=== PATIENT | female | born 1935 | race American Indian/Alaskan Native ===

== ENCOUNTER 2016-12-28 17:33 | Inpatient (IN) | payer MEDICARE, MEDICAID ==
[2016-12-28 17:50] VITALS: BMI 25.6
--- NOTE | 2016-12-28 17:56 | ED PDOC ---
Arrival/HPI - General Time Seen by Provider: 12/28/16 17:34 - History of Present Illness Narrative History of Present Illness (Text): 12/28/16 17:53 Patient is an 81 y/o F with hx of HTN, Hyperlipidemia, hypothyroid, and DM, presenting with request to be placed in a residential. Patient reports that she does not feel safe living alone and is frequently falling. She reports that she previously lived in [place]. She reports that she was scheduled to get a R knee replacement but got into an argument with her sister so she came back to [place]. She reports that she has persistent R knee pain and is frequently falling. She reports that she does not feel safe at home and wants to be placed in a residential. She also reports that she gets her defibrillator checked every 6 months and hasn't had it checked in >8 months so would like it interogated. Denies chest pain, shortness of breath, defribrillator firing, abdominal pain, fever, nausea/vomiting. 12/28/16 17:53 Family/Social History Family/Social History: No Known Family HX Allergies/Home Meds Allergies/Adverse Reactions: Allergies No Known Allergies Allergy (Verified 12/28/16 17:51) Home Medications: Home Meds Medication Instructions Recorded Confirmed Amiodarone [Cordarone] 200 mg PO DAILY 12/28/16 12/28/16 Carvedilol [Coreg] 25 mg PO BID 12/28/16 12/28/16 Digoxin [Digoxin] 125 mcg PO HS 12/28/16 12/28/16 Gabapentin [Neurontin] 300 mg PO HS 12/28/16 12/28/16 Glyburide/Metformin HCl 1 tab PO BID 12/28/16 12/28/16 [Glyburide-Metformin 2.5-500 mg] Isosorbide Mononitrate [Isosorbide 60 mg PO DAILY 12/28/16 12/28/16 Mononitrate ER] Levothyroxine [Synthroid] 50 mcg PO DAILY 12/28/16 12/28/16 Ondansetron [Zofran Tab] 1 tab PO Q8 PRN 12/28/16 12/28/16 Simvastatin [Simvastatin] 40 mg PO DAILY 12/28/16 12/28/16 hydrALAZINE [Apresoline] 1.5 tab PO TID 12/28/16 12/28/16 Review of Systems - Review of Systems Constitutional: absent: Fatigue, Weight Change, Fevers, Night Sweats Eyes: absent: Vision Changes ENT: absent: Hearing Changes Respiratory: absent: SOB, Cough, Sputum, Wheezing Cardiovascular: absent: Chest Pain, Palpitations, Edema, Calf Pain, ALFREDO, Orthopnea, Syncope Gastrointestinal: absent: Abdominal Pain, Constipation, Diarrhea, Nausea, Vomiting Genitourinary Female: absent: Dysuria, Frequency Musculoskeletal: Arthralgias Skin: absent: Rash Neurological: Gait Changes (frequent falls). absent: Headache, Dizziness, Focal Weakness, Speech Changes, Facial Droop Endocrine: absent: Diaphoresis Hemo/Lymphatic: absent: Adenopathy Psychiatric: absent: Anxiety Physical Exam Vital Signs Temp Pulse Resp BP Pulse Ox 12/28/16 18:04 98 F 80 22 171/77 H 99 Temperature: Afebrile Blood Pressure: Normal Pulse: Regular Respiratory Rate: Normal Appearance: Positive for: Well-Appearing, Non-Toxic, Comfortable Pain Distress: None Mental Status: Positive for: Alert and Oriented X 3 - Systems Exam Head: Present: Atraumatic, Normocephalic Pupils: Present: Other (blind in R eye, reactive L eye. +Exophthalmos) Extroacular Muscles: Present: EOMI Mouth: Present: Moist Mucous Membranes Neck: Present: Normal Range of Motion Respiratory/Chest: Present: Clear to Auscultation, Good Air Exchange. No: Respiratory Distress, Accessory Muscle Use Cardiovascular: Present: Regular Rate and Rhythm, Normal S1, S2. No: Murmurs Abdomen: No: Tenderness, Distention Back: Present: Normal Inspection. No: CVA Tenderness Upper Extremity: Present: Normal Inspection Lower Extremity: Present: NORMAL PULSES, Other (distal pulses intact). No: Normal ROM (decreased ROM at R knee) Neurological: Present: GCS=15, CN II-XII Intact, Speech Normal Skin: Present: Warm, Dry, Normal Color. No: Rashes Psychiatric: Present: Alert, Oriented x 3, Normal Insight, Normal Concentration. No: Suicidal Ideation, Homicidal Ideation Medical Decision Making ED Course and Treatment: 12/28/16 17:59 Patient is an 81 y/o F who was scheduled for outpatient knee replacement, presenting with worsening R knee pain, frequent falls and feels unsafe at home. She is requesting residential placement. Will get labs, including digoxin level and thyroid studies, cxray, ct head and r knee xray to r/o fracture or additional injury and will admit to hospital for frequent fall for residential placement. Cardiology can interrogate defibrillator as inpatient if desired and deemed necessary. 12/28/16 18:02 EKG shows NSR at 84bpm with 1st degree AV block. Normal intervals and no acute ST changes. No current chest pain 12/28/16 19:00 Will sign out to Dr. Valerio to follow-up imaging and labs and admit to medicine for frequent falls/unsafe discharge requiring PT/OT eval and likely nurisng home placement. - RAD Interpretation Radiology Orders: 12/28/16 17:52 KNEE RIGHT 2 VIEWS (AP & LAT) [RAD] Stat 12/28/16 17:56 HEAD W/O CONTRAST [CT] Stat 12/28/16 18:00 CHEST TWO VIEWS (PA/LAT) [RAD] Stat Disposition/Present on Arrival - Present on Arrival Any Indicators Present on Arrival: No - Disposition Have Diagnosis and Disposition been Completed?: Yes Diagnosis: Frequent falls, Knee pain Disposition: HOSPITALIZED Disposition Time: 18:00 Patient Plan: Admission Patient Problems: Current Active Problems Problem Status Diagnosed Frequent falls Acute Knee pain Acute Condition: FAIR
[2016-12-28 18:17] LABS: ADD MANUAL DIFF? NO
[2016-12-28 18:39] LABS: ALB/GLOB RATIO 0.9 (1.1-1.8); BILIRUBIN,TOTAL 0.4 mg/dL (0.2-1.3); CALCIUM 8.9 mg/dL (8.4-10.5); MAGNESIUM 2.1 mg/dL (1.7-2.2); PHOSPHOROUS 4.5 mg/dL (2.5-4.5); POTASSIUM 4.5 mmol/L (3.6-5.0); TOTAL PROTEIN 7.7 g/dL (5.8-8.3)
[2016-12-28 18:40] LABS: BASO # 0.01 K/mm3 (0.0-2.0); BASO % 0.1 % (0.0-3.0); EOS # 0.1 (0.0-0.7); EOS % 1.8 % (1.5-5.0); GRAN # 6.17 (1.4-6.5); GRAN % 77.6 % (50.0-68.0); HEMATOCRIT 32.9 % (36.0-48.0); LYMPH # 1.1 (1.2-3.4); LYMPH % 13.6 % (22.0-35.0); MEAN CELL VOLUME 93.5 fL (80.0-105.0); MEAN PLATELET VOLUME 8.7 fl (7.0-11.0); MONO # 0.6 (0.1-0.6); MONO % 6.9 % (1.0-6.0); PLATELET COUNT 381 10^3/uL (120.0-450.0); RED CELL DISTRIBUTION WIDTH 16.2 % (11.5-14.5)
[2016-12-28 18:53] LABS: FREE T4 1.67 ng/dL (0.78-2.19)
[2016-12-28 18:58] LABS: URINE BILIRUBIN NEGATIVE (NEGATIVE); URINE BLOOD NEGATIVE (NEGATIVE); URINE GLUCOSE (UA) NEGATIVE (NEGATIVE); URINE KETONE NEGATIVE (NEGATIVE); URINE LEUKOCYTE ESTERASE NEGATIVE Leu/uL (NEGATIVE); URINE PROTEIN 100 mg/dL (<30 mg/dL); URINE UROBILINOGEN 0.2 E.U./dL (<1 E.U./dL)
[2016-12-28 18:59] LABS: URINE APPEARANCE CLEAR (CLEAR); URINE COLOR YELLOW (YELLOW)
[2016-12-28 19:00] LABS: URINE RBC NEGATIVE /hpf (0-2); URINE WBC 0 - 2 /hpf (0-6)
[2016-12-28 19:07] LABS: THYROID STIMULATING HORMONE 1.51 mIU/mL (0.46-4.68)
--- NOTE | 2016-12-28 19:24 | CT ---
EXAM: CT Head Without Intravenous Contrast CLINICAL HISTORY: 81 years old, female; Signs and symptoms; Other: Frequent falls; Additional info: HX of frequent falls TECHNIQUE: Axial computed tomography images of the head/brain without intravenous contrast. This CT exam was performed using one or more of the following dose reduction techniques: automated exposure control, adjustment of the mA and/or kV according to patient size, and/or use of iterative reconstruction technique. EXAM DATE/TIME: 12/28/2016 5:56 PM COMPARISON: There are no prior studies for comparison. FINDINGS: Artifacts: Streak artifact degrades image quality. Motion artifact degrades image quality. Brain: There is dilatation of sulci gyri and ventricles. There is no midline shift. There is right cerebellar encephalomalacia. There is decreased attenuation in periventricular white matter. There is focal decreased attenuation in the right frontal lobe. There are basal ganglia calcifications. There are no focal masses. There are no focal hemorrhages. Alvarez-white differentiation is visualized. Ventricles: See above Bones: Cranial vault is intact. Soft tissues: unremarkable Sinuses: There is no acute sinusitis. Ears and mastoids: Middle ears and mastoids are unremarkable. Orbits: Right globe is deformed. Left globe is unremarkable. There are small calcifications in the globes. 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
--- NOTE | 2016-12-28 19:26 | ED PDOC ---
Physical Exam Vital Signs Reviewed: Yes Vital Signs Temp Pulse Resp BP Pulse Ox 12/28/16 18:04 98 F 80 22 171/77 H 99 Temperature: Afebrile Blood Pressure: Hypertensive Pulse: Regular Respiratory Rate: Normal Appearance: Positive for: Well-Appearing, Non-Toxic, Comfortable Pain Distress: None Mental Status: Positive for: Alert and Oriented X 3 Medical Decision Making ED Course and Treatment: 12/28/16 19:00 Patient signed out to me by , pending imagining, reevaluation and final disposition. Patient presents to the emergency department requesting to placed in a long term because she feels unsafe at home due to history of frequent falls and difficulty ambulating around at home secondary to right knee pain. 12/28/16 19:31 EXAM: CT Head Without Intravenous Contrast FINDINGS: Artifacts: Streak artifact degrades image quality. Motion artifact degrades image quality. Brain: There is dilatation of sulci gyri and ventricles. There is no midline shift. There is right cerebellar encephalomalacia. There is decreased attenuation in periventricular white matter. There is focal decreased attenuation in the right frontal lobe. There are basal ganglia calcifications. There are no focal masses. There are no focal hemorrhages. Alvarez-white differentiation is visualized. Ventricles: See above Bones: Cranial vault is intact. Soft tissues: unremarkable Sinuses: There is no acute sinusitis. Ears and mastoids: Middle ears and mastoids are unremarkable. Orbits: Right globe is deformed. Left globe is unremarkable. There are small calcifications in the globes. 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 Case discussed with who accepts patient under his service. - Lab Interpretations Lab Results: 12/28/16 18:10 12/28/16 18:10 Lab Results 12/28/16 18:45: Urine Color Yellow, Urine Appearance Clear, Urine pH 6.0, Ur Specific [place] >= 1.030, Urine Protein 100 H, Urine Glucose (UA) Negative, Urine Ketones Negative, Urine Blood Negative, Urine Nitrate Negative, Urine Bilirubin Negative, Urine Urobilinogen 0.2, Ur Leukocyte Esterase Negative, Urine RBC Negative, Urine WBC 0 - 2, Ur Epithelial Cells 1 - 3 12/28/16 18:10: WBC 8.0, RBC 3.52, Hgb 10.2 L, Hct 32.9 L, MCV 93.5, MCH 29.0, MCHC 31.0, RDW 16.2 H, Plt Count 381, MPV 8.7, Gran % 77.6 H, Lymph % (Auto) 13.6 L, [place] % (Auto) 6.9 H, Eos % (Auto) 1.8, Baso % (Auto) 0.1, Gran # 6.17, Lymph # 1.1 L, [place] # 0.6, Eos # 0.1, Baso # 0.01, Sodium 142, Potassium 4.5, Chloride 107, Carbon Dioxide 26, Anion Gap 14, BUN 20, Creatinine 1.1, Est GFR ( Amer) 58, Est GFR (Non-Af Amer) 48, Random Glucose 94, Calcium 8.9, Phosphorus 4.5, Magnesium 2.1, Total Bilirubin 0.4, AST 28, ALT 35, Alkaline Phosphatase 83, Total Protein 7.7, Albumin 3.7, Globulin 4.0, Albumin/Globulin Ratio 0.9 L, Free T4 1.67, TSH 3rd Generation 1.51, Digoxin 0.5 L - RAD Interpretation Radiology Orders: 12/28/16 17:52 KNEE RIGHT 2 VIEWS (AP & LAT) [RAD] Stat 12/28/16 17:56 HEAD W/O CONTRAST [CT] Stat 12/28/16 18:00 CHEST TWO VIEWS (PA/LAT) [RAD] Stat Net Software Architect: Radiologist - Scribe Statement The provider has reviewed the documentation as recorded by the Hansa Montiel Provider Attestation: All medical record entries made by the Hansa were at my direction and personally dictated by me. I have reviewed the chart and agree that the record accurately reflects my personal performance of the history, physical exam, medical decision making, and the department course for this patient. I have also personally directed, reviewed, and agree with the discharge instructions and disposition. Disposition/Present on Arrival - Present on Arrival Any Indicators Present on Arrival: No History of DVT/PE: No History of Uncontrolled Diabetes: No Urinary Catheter: No History of Decub. Ulcer: No History Surgical Site Infection Following: None - Disposition Have Diagnosis and Disposition been Completed?: Yes Diagnosis: Frequent falls, Knee pain Disposition: HOSPITALIZED Disposition Time: 19:53 Patient Problems: Current Active Problems Problem Status Diagnosed Frequent falls Acute Knee pain Acute Condition: FAIR
--- NOTE | 2016-12-28 20:51 | CP.PCM.HP ---
<Oz Mckeon - Last Filed: 12/29/16 20:16> History of Present Illness - History of Present Illness History of Present Illness: cc: Right knee pain HPI: Patient is an 81yo female with past medical history of CAD, hypertension, HLD, hypothyroidism, DM2, AICD placement that [facility] c/o chronic right knee pain for the last several months that has exacerbated in the last 2-3 days. Patient states that she was living in [place] up until 3 weeks ago when she moved to [place] to live with one of her friends however she has had difficulty ambulating and was complaining of frequent falls. She states that she feels unsafe at home, is unable to navigate up and down the steps where she lives and wishes to be placed in a longterm for further care. She stated that she was anticipating to have a right knee replacement in [place] however got into an argument with her sister whom she had been living with and subsequently came to [place] to reside with a friend. She also reports that she has a defibrillator that hasn't been checked in approximately 8 months and would like to have it interrogated. She denies chest pain, palpitations, SOB, abdominal pain, nausea, vomiting, fever, chills, cough , dysuria, frequency, urgency. 12 point ROS as per HPI above, otherwise negative PMHx: CAD, HTN, HLD, hypothyroidism, DM2 PSHx: AICD placement (~15yrs ago) Allergies: NKDA Family Hx: Mother: Arthritis, HTN; Father: CAD, DM2 Social Hx: Formerly from [place], moved to [place] 3 weeks ago; Ambulates with the aid of a walker; Former tobacco use (1ppd for 30yrs; quit 18yrs ago); Denies illicit drugs and alcohol use Present on Admission - Present on Admission Any Indicators Present on Admission: No Past Patient History - Past Social History Smoking Status: Former Smoker - CARDIAC Hx Cardiac Disorders: Yes Hx Hypertension: Yes - PULMONARY Hx Respiratory Disorders: No - NEUROLOGICAL Hx Neurological Disorder: No - HEENT Hx HEENT Problems: Yes Hx Blind: Yes - RENAL Hx Chronic Kidney Disease: No - ENDOCRINE/METABOLIC Hx Endocrine Disorders: Yes Hx Diabetes Mellitus Type 2: Yes - HEMATOLOGICAL/ONCOLOGICAL Hx Blood Disorders: No - INTEGUMENTARY Hx Dermatological Problems: No - MUSCULOSKELETAL/RHEUMATOLOGICAL Hx Musculoskeletal Disorders: Yes Hx Falls: Yes - GASTROINTESTINAL Hx Gastrointestinal Disorders: No - GENITOURINARY/GYNECOLOGICAL Hx Genitourinary Disorders: No - PSYCHIATRIC Hx Psychophysiologic Disorder: No Hx Substance Use: No - SURGICAL HISTORY Hx Surgeries: Yes (defibrillator) Meds Allergies/Adverse Reactions: Allergies Allergy/AdvReac Type Severity Reaction Status Date / Time No Known Allergies Allergy Verified 12/28/16 17:51 Physical Exam - Constitutional Appears: Non-toxic, No Acute Distress - Head Exam Head Exam: ATRAUMATIC, NORMAL INSPECTION, NORMOCEPHALIC - Eye Exam Eye Exam: EOMI. absent: Normal appearance, Scleral icterus Additional comments: right eye blindeness left eye exopthalmos - ENT Exam ENT Exam: Mucous Membranes Moist - Neck Exam Neck exam: Positive for: Normal Inspection. Negative for: Lymphadenopathy, Tenderness, Thyromegaly - Respiratory Exam Respiratory Exam: Clear to Auscultation Bilateral. absent: Rales, Rhonchi, Wheezes - Cardiovascular Exam Cardiovascular Exam: RRR, +S1, +S2, Systolic Murmur. absent: Gallop, Rubs - GI/Abdominal Exam GI & Abdominal Exam: absent: Distended, Firm, Guarding, Rebound, Tenderness - Extremities Exam Extremities exam: Negative for: calf tenderness, pedal edema Additional comments: right knee range of motion limited; - Neurological Exam Neurological exam: Alert, Oriented x3 - Psychiatric Exam Psychiatric exam: Normal Affect, Normal Mood - Skin Skin Exam: Dry, Intact, Normal Color, Warm Results - Vital Signs Recent Vital Signs: Last Vital Signs Temp 98 F 12/28/16 18:04 Pulse 80 12/28/16 18:04 Resp 22 12/28/16 18:04 BP 171/77 H 12/28/16 18:04 Pulse Ox 99 12/28/16 18:04 - Labs Result Diagrams: 12/28/16 18:10 12/28/16 18:10 Labs: Laboratory Results - last 24 hr 12/28/16 12/28/16 18:10 18:45 WBC 8.0 RBC 3.52 Hgb 10.2 L Hct 32.9 L MCV 93.5 MCH 29.0 MCHC 31.0 RDW 16.2 H Plt Count 381 MPV 8.7 Gran % 77.6 H Lymph % (Auto) 13.6 L [place] % (Auto) 6.9 H Eos % (Auto) 1.8 Baso % (Auto) 0.1 Gran # 6.17 Lymph # 1.1 L [place] # 0.6 Eos # 0.1 Baso # 0.01 Sodium 142 Potassium 4.5 Chloride 107 Carbon Dioxide 26 Anion Gap 14 BUN 20 Creatinine 1.1 Est GFR ( Amer) 58 Est GFR (Non-Af Amer) 48 Random Glucose 94 Calcium 8.9 Phosphorus 4.5 Magnesium 2.1 Total Bilirubin 0.4 AST 28 ALT 35 Alkaline Phosphatase 83 Total Protein 7.7 Albumin 3.7 Globulin 4.0 Albumin/Globulin Ratio 0.9 L Free T4 1.67 TSH 3rd Generation 1.51 Urine Color Yellow Urine Appearance Clear Urine pH 6.0 Ur Specific [place] >= 1.030 Urine Protein 100 H Urine Glucose (UA) Negative Urine Ketones Negative Urine Blood Negative Urine Nitrate Negative Urine Bilirubin Negative Urine Urobilinogen 0.2 Ur Leukocyte Esterase Negative Urine RBC Negative Urine WBC 0 - 2 Ur Epithelial Cells 1 - 3 Digoxin 0.5 L Assessment & Plan - Assessment and Plan (Free Text) Assessment: 81yo female with history of CAD, HTN, HLD, hypothyroidism, DM2, AICD placement [facility] c/o right knee pain, frequent falls and feeling unsafe at home. Wishes to be placed in a longterm for further care. Plan: 1. Right knee pain/Falls -Head CT revealed atrophy and small vessel disease, no bleed; old right cerebellar infarct; old age-indeterminate right frontal infarct -Right knee xray pending read -Physical therapy consulted -Ortho consulted - Dr. Moore 2. CAD -CXR reviewed, no apparent active disease -EKG reviewed; revealed normal sinus rhythm 84bpm with 1st degree AV block and no acute ST-T wave changes -Continue amiodarone, digoxin -Continue imdur, coreg, hydralazine -Continue simvastatin 3. Diabetes Mellitus type 2 -Consistent carb diet -Fingersticks ACHS -Humulin low dose ISS 4. Hypothyroidism -Continue home synthroid medication -TSH, Free t4 within normal limits 5. GI/DVT Prophylaxis -protonix/lovenox 6. Disposition -Social work and case management consulted for longterm evaluation/long- term care planning - Date & Time Date: 12/28/16 Time: 20:55 <Jaquan Deleon - Last Filed: 01/26/17 09:53> Results - Vital Signs Recent Vital Signs: Last Vital Signs Temp 97.6 F 01/01/17 07:50 Pulse 63 01/01/17 17:27 Resp 19 01/01/17 07:50 BP 140/69 01/01/17 17:27 Pulse Ox 93 L 01/01/17 07:50 - Labs Result Diagrams: 01/01/17 13:20 01/01/17 05:30 Attending/Attestation - Attestation I have personally seen and examined this patient.: Yes I have fully participated in the care of the patient.: Yes I have reviewed all pertinent clinical information: Yes Notes (Text): 01/26/17 09:53 Medical record note made by the resident after discussion with my direction and input after the patient was personally seen and examined by me. I have reviewed the chart and agree that the record accurately reflects by personal performance of the history, physical exam, data review, and medical decision-making, in the course for the patient. I have also personally directed the plan of care.
[2016-12-28] MEDS ORDERED: Insulin Reg-LOW-Coverage SC SCH (22:00)
[2016-12-29] MEDS ORDERED: Alum-Mag Hydrox-Simethicone Susp (30 mL) PO ONE (03:43)
[2016-12-29] MEDS ORDERED: Levothyroxine 50 MCG TAB PO SCH (07:30)
[2016-12-29 08:46] LABS: ADD MANUAL DIFF? NO
[2016-12-29 08:55] LABS: BASO # 0.01 K/mm3 (0.0-2.0); BASO % 0.1 % (0.0-3.0); EOS # 0.1 (0.0-0.7); EOS % 1.7 % (1.5-5.0); GRAN # 6.17 (1.4-6.5); GRAN % 76.5 % (50.0-68.0); HEMATOCRIT 32.9 % (36.0-48.0); LYMPH # 0.9 (1.2-3.4); LYMPH % 11.1 % (22.0-35.0); MEAN CELL VOLUME 92.7 fL (80.0-105.0); MEAN CORPUSCULAR HEMOGLOBIN 28.7 pg (25.0-35.0); MEAN PLATELET VOLUME 8.9 fl (7.0-11.0); MONO # 0.9 (0.1-0.6); MONO % 10.6 % (1.0-6.0); PLATELET COUNT 366 10^3/uL (120.0-450.0); RED CELL DISTRIBUTION WIDTH 16.1 % (11.5-14.5); WHITE BLOOD COUNT 8.1 10^3/ul (4.5-11.0)
[2016-12-29 09:02] LABS: ALB/GLOB RATIO 0.9 (1.1-1.8); ALKALINE PHOSPHATASE 77 U/L (38-133); ALT/SGPT 34 U/L (7-56); AST/SGOT 32 U/L (15-39); BILIRUBIN,TOTAL 0.6 mg/dL (0.2-1.3); BLOOD UREA NITROGEN 16 mg/dL (7-21); CALCIUM 9.1 mg/dL (8.4-10.5); CARBON DIOXIDE 29 mmol/L (21-33); CHLORIDE 104 mmol/L (98-107); GFR AFRICAN-AMERICAN > 60; GLUCOSE,RANDOM 96 mg/dL (70-110); SODIUM 140 mmol/L (132-148); TOTAL PROTEIN 7.7 g/dL (5.8-8.3)
[2016-12-29 09:03] LABS: POTASSIUM 4.1 mmol/L (3.6-5.0)
[2016-12-29] MEDS: Insulin Reg-LOW-Coverage SC SCH ×4 (09:39→22:00)
[2016-12-29] MEDS: Enoxaparin 40 mg Syringe SC SCH (09:46)
[2016-12-29] MEDS: Levothyroxine 50 MCG TAB PO SCH (09:47)
[2016-12-29] MEDS ORDERED: Enoxaparin 40 mg Syringe SC SCH (10:00)
--- NOTE | 2016-12-29 10:34 | RAD ---
HISTORY: frequent falls COMPARISON: No prior. TECHNIQUE: Chest PA and lateral FINDINGS: LUNGS: No active pulmonary disease. PLEURA: No significant pleural effusion identified. No pneumothorax apparent. CARDIOVASCULAR: There is moderate cardiomegaly. A dual lead pacemaker is present OSSEOUS STRUCTURES: No significant abnormalities. VISUALIZED UPPER ABDOMEN: Normal. OTHER FINDINGS: None. IMPRESSION: No active disease.
--- NOTE | 2016-12-29 10:37 | RAD ---
PROCEDURE: Right Knee Radiographs. HISTORY: R knee pain COMPARISON: None. FINDINGS: BONES: Normal. No fracture. JOINTS: There is joint space narrowing and bony sclerosis in the lateral compartment as well as osteophyte formation. There is calcification of the meniscus JOINT EFFUSION: None. OTHER FINDINGS: None. IMPRESSION: Joint space narrowing with bony sclerosis and osteophyte formation in the lateral compartment
--- NOTE | 2016-12-29 10:49 | CON ---
DATE: 12/29/2016 REASON FOR CONSULT: Right knee pain. This is an 81-year-old female who was admitted yesterday to the hospital for frequent falls. She say s that she has long history of having right knee pain, and was scheduled to have surgery to have a kn ee replacement in [place], however, had to move back to [place]. She says that she has had previous treatments for it in the past, as well. She says that she has the knee does not straighten out completely and that she does have good range of motion of her knee. On examination, this is an elderly female who is awake, alert, and oriented x 3. She is in no appare nt distress. Evaluation of the right knee shows that her skin is intact. She has some chronic deformity of the kn ee with a flexion contracture of approximately 7-10 degrees, and valgus malalignment. She has active range of motion from about -10 to about 65 degrees of flexion. She has some joint line tenderness t o palpation. Her valgus deformity is almost passively correctable to neutral. Her thigh and calf ar e soft and nontender. NEUROLOGICALLY: She is grossly intact distally with a palpable DP pulse. X-rays of her right knee showed no acute fractures. There are no obvious fractures or dislocations, but advanced degenerative changes with complete lateral compartment narrowing, advanced patellofemora l degenerative changes, and some valgus malalignment. IMPRESSION: Right knee arthritis. PLAN: We discussed the treatment options, including a possible cortisone injection for some symptoma tic pain relief, however, she feels that she does not want to do any more injections, and would prefe r to have her knee replaced. At this point, we are going to have her follow up as an outpatient, and will plan on discussing knee replacement further. Steve Moore MD cc: [id number] TT: 12/29/2016 10:48:34 Confirmation # [id number] Dictation # [id number] veronica
--- NOTE | 2016-12-29 14:36 | CP.PCM.PN ---
<Eve Dunn - Last Filed: 12/29/16 15:10> Subjective - Date & Time of Evaluation Date of Evaluation: 12/29/16 Time of Evaluation: 10:00 - Subjective Subjective: PGY-1 Medicine progress note Patient was seen and examined at bedside. No acute distress. Nurse reports no events overnight but that patient is unsteady on her feet. Patient states that she recently moved here from [place]. She is living with a friend who's house has many steps. Her chronic knee pain has been progressively worse. She reports some nasal congest for which she takes nasal spray. She denies fevers, sob, chest pain. She reports mild constipation. Objective - Vital Signs/Intake and Output Vital Signs (last 24 hours): Temp Pulse Resp BP Pulse Ox 97.7 F 81 20 153/80 H 100 12/28/16 23:45 12/28/16 23:45 12/28/16 23:45 12/28/16 23:45 12/28/16 22:00 - Medications Medications: Current Medications Amiodarone HCl (Cordarone) 200 mg PO DAILY [facility] Last Admin: 12/29/16 09:44 Dose: 200 mg Atorvastatin Calcium (Lipitor) 20 mg PO DIN [facility] Carvedilol (Coreg) 25 mg PO BID [facility] Last Admin: 12/29/16 09:44 Dose: 25 mg Digoxin (Lanoxin) 0.125 mg PO HS [facility] Enoxaparin Sodium (Lovenox) 40 mg SC DAILY [facility] Last Admin: 12/29/16 09:46 Dose: 40 mg Gabapentin (Neurontin) 300 mg PO HS [facility] Hydralazine HCl (Apresoline) 37.5 mg PO TID [facility] Last Admin: 12/29/16 13:03 Dose: 37.5 mg Insulin Human Regular (Humulin R Low) 0 units SC [facility] PRN Reason: Protocol Last Admin: 12/29/16 12:17 Dose: Not Given Isosorbide Mononitrate (Imdur) 60 mg PO DAILY [facility] Last Admin: 12/29/16 09:46 Dose: 60 mg Levothyroxine Sodium (Synthroid) 50 mcg PO ACB [facility] Last Admin: 12/29/16 09:47 Dose: 50 mcg Pantoprazole Sodium (Protonix Inj) 40 mg IVP DAILY [facility] Last Admin: 12/29/16 09:46 Dose: 40 mg Sodium Chloride ([place] Nasal [place]) 0 ml NS Q4H PRN PRN Reason: Nasal congestion - Labs Labs: 12/29/16 08:40 12/29/16 08:40 - Constitutional Appears: Well, No Acute Distress - Head Exam Head Exam: ATRAUMATIC, NORMOCEPHALIC - Eye Exam Eye Exam: Normal appearance - ENT Exam ENT Exam: Mucous Membranes Moist - Respiratory Exam Respiratory Exam: Clear to Ausculation Bilateral, NORMAL BREATHING PATTERN. absent: Rhonchi, Wheezes, Respiratory Distress - Cardiovascular Exam Cardiovascular Exam: REGULAR RHYTHM. absent: Tachycardia, Murmur - GI/Abdominal Exam GI & Abdominal Exam: Soft, Normal Bowel Sounds. absent: Distended, Firm, Guarding, Tenderness - Extremities Exam Extremities Exam: Normal Inspection. absent: Pedal Edema - Neurological Exam Neurological Exam: Alert, Awake, Oriented x3 - Skin Skin Exam: Dry, Intact, Normal Color, Warm Assessment and Plan - Assessment and Plan (Free Text) Assessment: 81 yo female with history of CAD, HTN, HLD, hypothyroidism, DM2, AICD placement presents with complaint of right knee pain, frequent falls and feeling unsafe at home. Wishes to be placed in a fpc for further care. Plan: 1. Right knee pain/Falls - Head CT revealed atrophy and small vessel disease, no bleed; old right cerebellar infarct; old age-indeterminate right frontal infarct - Right knee xray showed joint space narrowing with bony sclerosis and osteophyte formation - Physical therapy consulted - Ortho consulted, Dr. Moore recommends outpatient follow up for possible knee replacement, patient does not want knee injections. - PT evaluation pending 2. CAD - CXR showed no active disease - EKG - revealed normal sinus rhythm 84bpm with 1st degree AV block and no acute ST-T wave changes - Continue amiodarone, digoxin - Continue imdur, coreg, hydralazine - Continue simvastatin 3. Diabetes Mellitus type 2 - Consistent carb diet - Fingersticks ACHS - Humulin low dose ISS 4. Hypothyroidism - Continue home synthroid medication - TSH, Free t4 within normal limits 5. GI/DVT Prophylaxis - protonix/lovenox 6. Disposition - Social work and case management consulted for fpc evaluation/long- term care planning <Jaquan Deleon - Last Filed: 01/26/17 09:41> Objective - Vital Signs/Intake and Output Vital Signs (last 24 hours): Temp Pulse Resp BP Pulse Ox 97.6 F 63 19 140/69 93 L 01/01/17 07:50 01/01/17 17:27 01/01/17 07:50 01/01/17 17:27 01/01/17 07:50 - Labs Labs: 01/01/17 13:20 01/01/17 05:30 Attending/Attestation - Attestation I have personally seen and examined this patient.: Yes I have fully participated in the care of the patient.: Yes I have reviewed all pertinent clinical information, including history, physical exam and plan: Yes Notes (Text): 01/26/17 09:41 Medical record note made by the resident after discussion with my direction and input after the patient was personally seen and examined by me. I have reviewed the chart and agree that the record accurately reflects by personal performance of the history, physical exam, data review, and medical decision-making, in the course for the patient. I have also personally directed the plan of care.
[2016-12-29] MEDS ORDERED: Fluticasone Nasal 50 mcg/Spray NS PRN (15:33)
[2016-12-29] MEDS ORDERED: Simethicone 80 mg Chewtab PO PRN (16:16)
--- NOTE | 2016-12-29 16:50 | CARD ---
APPROVED REPORT EKG Measurement Heart [id number] <Conclusion> Sinus rhythm with 1st degree AV block Possible Inferior infarct, age undetermined Anterior infarct, age undetermined Abnormal ECG
[2016-12-29] MEDS: Digoxin 125 mcg (0.125 mg) Tab PO SCH (21:28)
[2016-12-29] MEDS ORDERED: Digoxin 125 mcg (0.125 mg) Tab PO SCH (22:00)
--- NOTE | 2016-12-30 07:49 | CP.PCM.PN ---
<Eve Dunn - Last Filed: 12/30/16 10:04> Subjective - Date & Time of Evaluation Date of Evaluation: 12/30/16 Time of Evaluation: 07:47 - Subjective Subjective: PGY-1 Medicine progress note Patient seen and examined at bedside. No acute distress. Nurse reports no events overnight. Patient asked for Tylenol for knee pain overnight. Yesterday patient complained of nasal congestion and stated that she takes over the counter mediation. She also complained of bloating and gas pain. This morning she complains of trouble sleeping due to the noise. Objective - Vital Signs/Intake and Output Vital Signs (last 24 hours): Temp Pulse Resp BP Pulse Ox 98.2 F 65 19 136/67 98 12/29/16 16:00 12/29/16 16:00 12/29/16 16:00 12/29/16 16:00 12/29/16 16:00 Intake and Output: 12/30/16 12/30/16 06:59 18:59 Intake Total 120 Balance 120 - Medications Medications: Current Medications Acetaminophen (Tylenol 325mg Tab) 650 mg PO Q6H PRN PRN Reason: Fever >100.4 F Amiodarone HCl (Cordarone) 200 mg PO DAILY [facility] Last Admin: 12/29/16 09:44 Dose: 200 mg Atorvastatin Calcium (Lipitor) 20 mg PO DIN [facility] Last Admin: 12/29/16 17:34 Dose: 20 mg Carvedilol (Coreg) 25 mg PO BID [facility] Last Admin: 12/29/16 17:34 Dose: 25 mg Digoxin (Lanoxin) 0.125 mg PO HS [facility] Last Admin: 12/29/16 21:28 Dose: 0.125 mg Enoxaparin Sodium (Lovenox) 40 mg SC DAILY [facility] Last Admin: 12/29/16 09:46 Dose: 40 mg Gabapentin (Neurontin) 300 mg PO HS [facility] Last Admin: 12/29/16 21:28 Dose: 300 mg Hydralazine HCl (Apresoline) 37.5 mg PO TID [facility] Last Admin: 12/29/16 17:34 Dose: 37.5 mg Insulin Human Regular (Humulin R Low) 0 units SC ACHS [facility] PRN Reason: Protocol Last Admin: 12/29/16 22:00 Dose: 2 units Isosorbide Mononitrate (Imdur) 60 mg PO DAILY [facility] Last Admin: 12/29/16 09:46 Dose: 60 mg Levothyroxine Sodium (Synthroid) 50 mcg PO ACB [facility] Last Admin: 12/29/16 09:47 Dose: 50 mcg Loratadine (Claritin) 10 mg PO DAILY PRN PRN Reason: Nasal congestion Last Admin: 12/29/16 21:28 Dose: 10 mg Pantoprazole Sodium (Protonix Ec Tab) 40 mg PO ACB [facility] Simethicone (Mylicon Chew Tab) 80 mg PO P[facility]S PRN PRN Reason: GI distress Last Admin: 12/29/16 16:27 Dose: 80 mg Sodium Chloride ([place] Nasal [place]) 0 ml NS Q4H PRN PRN Reason: Nasal congestion - Labs Labs: 12/29/16 08:40 12/29/16 08:40 - Constitutional Appears: Well, No Acute Distress - Head Exam Head Exam: ATRAUMATIC, NORMOCEPHALIC - Eye Exam Eye Exam: EOMI (left eye) Additional comments: right eye blindness - ENT Exam ENT Exam: Mucous Membranes Moist - Respiratory Exam Respiratory Exam: Clear to Ausculation Bilateral, NORMAL BREATHING PATTERN. absent: Decreased Breath Sounds, Rhonchi, Wheezes, Respiratory Distress - Cardiovascular Exam Cardiovascular Exam: REGULAR RHYTHM. absent: Tachycardia, Murmur - GI/Abdominal Exam GI & Abdominal Exam: Soft, Normal Bowel Sounds. absent: Distended, Firm, Guarding, Tenderness - Extremities Exam Extremities Exam: Joint Swelling (right knee). absent: Pedal Edema Additional comments: right knee swelling, limited range of motion. - Neurological Exam Neurological Exam: Alert, Awake, Oriented x3 - Skin Skin Exam: Dry, Intact, Normal Color, Warm Assessment and Plan - Assessment and Plan (Free Text) Assessment: 81 yo female with history of CAD, HTN, HLD, hypothyroidism, DM2, AICD placement presents with complaint of right knee pain, frequent falls and feeling unsafe at home. Wishes to be placed in a skilled nursing for further care. PT recommends subacute rehab. Plan: 1. Right knee pain/Falls - Head CT revealed atrophy and small vessel disease, no bleed; old right cerebellar infarct; old age-indeterminate right frontal infarct - Right knee xray showed joint space narrowing with bony sclerosis and osteophyte formation - Physical therapy recommends subacute rehab - Ortho consulted, Dr. Moore recommends outpatient follow up for possible knee replacement, patient does not want knee injections. - subacute rehab placement pending 2. CAD - CXR showed no active disease - EKG - revealed normal sinus rhythm 84bpm with 1st degree AV block and no acute ST-T wave changes - Continue amiodarone, digoxin - Continue imdur, coreg, hydralazine - Continue simvastatin 3. Diabetes Mellitus type 2 - Consistent carb diet - Fingersticks ACHS - Humulin low dose ISS 4. Hypothyroidism - Continue home synthroid medication - TSH, Free t4 within normal limits 5. nasal congestion - claritin started - cont NS nasal spray 6. bloating - started simethicone GI/DVT Prophylaxis - protonix/lovenox Disposition - Social work and case management consulted for skilled nursing evaluation/long- term care planning - awaiting placement in subacute rehab <Jaquan Deleon - Last Filed: 01/26/17 09:57> Objective - Vital Signs/Intake and Output Vital Signs (last 24 hours): Temp Pulse Resp BP Pulse Ox 97.6 F 63 19 140/69 93 L 01/01/17 07:50 01/01/17 17:27 01/01/17 07:50 01/01/17 17:27 01/01/17 07:50 - Labs Labs: 01/01/17 13:20 01/01/17 05:30 Attending/Attestation - Attestation I have personally seen and examined this patient.: Yes I have fully participated in the care of the patient.: Yes I have reviewed all pertinent clinical information, including history, physical exam and plan: Yes Notes (Text): 01/26/17 09:56 Medical record note made by the resident after discussion with my direction and input after the patient was personally seen and examined by me. I have reviewed the chart and agree that the record accurately reflects by personal performance of the history, physical exam, data review, and medical decision-making, in the course for the patient. I have also personally directed the plan of care.
[2016-12-30] MEDS: Insulin Reg-LOW-Coverage SC SCH ×4 (08:10→22:00)
[2016-12-30 08:20] LABS: ADD MANUAL DIFF? NO
[2016-12-30 08:25] LABS: BASO # 0.01 K/mm3 (0.0-2.0); BASO % 0.1 % (0.0-3.0); EOS # 0.1 (0.0-0.7); EOS % 1.8 % (1.5-5.0); GRAN # 5.78 (1.4-6.5); GRAN % 76.5 % (50.0-68.0); HEMATOCRIT 30.3 % (36.0-48.0); LYMPH # 0.8 (1.2-3.4); LYMPH % 10.8 % (22.0-35.0); MEAN CELL VOLUME 92.9 fL (80.0-105.0); MEAN CORPUSCULAR HEMOGLOBIN 28.8 pg (25.0-35.0); MEAN PLATELET VOLUME 8.6 fl (7.0-11.0); MONO # 0.8 (0.1-0.6); MONO % 10.8 % (1.0-6.0); PLATELET COUNT 310 10^3/uL (120.0-450.0); RED CELL DISTRIBUTION WIDTH 15.9 % (11.5-14.5); WHITE BLOOD COUNT 7.6 10^3/ul (4.5-11.0)
[2016-12-30 08:38] LABS: ALB/GLOB RATIO 0.9 (1.1-1.8); BILIRUBIN,TOTAL 0.5 mg/dL (0.2-1.3); CALCIUM 8.6 mg/dL (8.4-10.5); POTASSIUM 4.1 mmol/L (3.6-5.0)
[2016-12-30] MEDS: Enoxaparin 40 mg Syringe SC SCH (09:43)
[2016-12-30] MEDS: Pantoprazole 40 mg EC Tab PO SCH (09:45)
[2016-12-30] MEDS: Levothyroxine 50 MCG TAB PO SCH (09:46)
[2016-12-30] MEDS: Digoxin 125 mcg (0.125 mg) Tab PO SCH (22:15)
[2016-12-31] MEDS: Insulin Reg-LOW-Coverage SC SCH ×4 (08:30→21:45)
[2016-12-31] MEDS: Enoxaparin 40 mg Syringe SC SCH (09:28)
[2016-12-31] MEDS: Pantoprazole 40 mg EC Tab PO SCH (09:29)
[2016-12-31] MEDS: Levothyroxine 50 MCG TAB PO SCH (09:29)
[2016-12-31] MEDS ORDERED: Promethazine/Cod 6.25mg-10mg/5ml Syr UD PO SCH ×2 (11:32→14:00)
--- NOTE | 2016-12-31 12:36 | PN ---
DATE: 12/31/[address] Rayo and Dr. Deleon who are off today. She is resting in bed. She talks to her family on the phone. She has a nasal congestion and cough. I will put her on some promethazine DM 1 teaspoon 3 times a day. She is supposed to go to rehab tomorrow because she has been falling. Hopefully, this will help her. I will put her on promethazine DM. I will check her labs tomorrow. PHYSICAL EXAMINATION: VITAL SIGNS: Temp 97.6, 61 pulse, 151/68 blood pressure, 19 respiratory rate, 99% O2 sat on room air. HEAD: Atraumatic, normocephalic. HEART: Regular rate. LUNGS: Decreased breath sounds, but clear. ABDOMEN: Soft, mildly obese. EXTREMITIES: No edema. NECK: Throat is moist. Neck supple. No JVD. MEDICATIONS: She is on Apresoline, Claritin, Cordarone, Coreg, insulin, Imdur, Lanoxin, Lipitor, Lovenox, Mylicon, Neurontin, [place] spray. I gave her Phenergan DM, Protonix, Synthroid, and Tylenol. LABORATORY DATA: She has a 7.6 white count, 9.4 hemoglobin, 310 platelets yesterday; none was ordered for today. Sodium 140, potassium 4.1, BUN , creatinine 1.1 - a little high. GFR is 48. Sugar is 119. Calcium is 8.6. Total bili is 0.5. AST is 21. ALT is 32. Alk phos is 68. TSH is 1.51. The urine was clear. She is being seen by orthopedics, and orthopedics recommended a cortisone injection, physical therapy. In the future, she might need a knee replacement. We will continue with aggressive treatment and care. Hopefully, tomorrow she will go to rehab. I gave her some cough medicine for the cough. Check her labs tomorrow. Joshua Simon DO cc: [id number] TT: 12/31/2016 12:35:39 Confirmation # [id number] Dictation # [id number] [facility]
[2016-12-31] MEDS: Promethazine DM 6.25 mg-15 mg/5 ml Syrup PO PRN (17:54)
[2016-12-31] MEDS: Digoxin 125 mcg (0.125 mg) Tab PO SCH (21:27)
[2016-12-31 21:31] VITALS: PULSE 62
[2017-01-01] MEDS: Promethazine DM 6.25 mg-15 mg/5 ml Syrup PO PRN ×3 (00:20→16:43)
[2017-01-01 06:25] LABS: HEMATOCRIT 29.4 % (36.0-48.0); MEAN CELL VOLUME 93.9 fL (80.0-105.0); MEAN CORPUSCULAR HEMOGLOBIN 29.1 pg (25.0-35.0); RED CELL DISTRIBUTION WIDTH 15.9 % (11.5-14.5)
[2017-01-01 06:52] LABS: ALB/GLOB RATIO 0.9 (1.1-1.8); BILIRUBIN,TOTAL 0.4 mg/dL (0.2-1.3); CALCIUM 8.8 mg/dL (8.4-10.5); POTASSIUM 4.4 mmol/L (3.6-5.0); TOTAL PROTEIN 7.1 g/dL (5.8-8.3)
[2017-01-01 07:51] VITALS: RESP 19; TEMP 97.6; O2SAT 93
[2017-01-01] MEDS: Insulin Reg-LOW-Coverage SC SCH ×3 (07:51→16:49)
[2017-01-01] MEDS: Levothyroxine 50 MCG TAB PO SCH (08:11)
[2017-01-01] MEDS: Pantoprazole 40 mg EC Tab PO SCH (08:11)
[2017-01-01] MEDS: Enoxaparin 40 mg Syringe SC SCH (09:32)
[2017-01-01 09:58] LABS: ADD MANUAL DIFF? NO
[2017-01-01 10:01] LABS: BASO # 0.01 K/mm3 (0.0-2.0); BASO % 0.1 % (0.0-3.0); EOS # 0.1 (0.0-0.7); EOS % 1.9 % (1.5-5.0); GRAN # 5.93 (1.4-6.5); GRAN % 79.8 % (50.0-68.0); HEMATOCRIT 30.2 % (36.0-48.0); LYMPH # 0.8 (1.2-3.4); LYMPH % 10.4 % (22.0-35.0); MEAN CELL VOLUME 94.1 fL (80.0-105.0); MEAN CORPUSCULAR HEMOGLOBIN 28.7 pg (25.0-35.0); MEAN CORPUSCULAR HGB CONC 30.5 g/dl (31.0-37.0); MEAN PLATELET VOLUME 8.5 fl (7.0-11.0); MONO # 0.6 (0.1-0.6); MONO % 7.8 % (1.0-6.0); PLATELET COUNT 291 10^3/uL (120.0-450.0); RED CELL DISTRIBUTION WIDTH 15.6 % (11.5-14.5); RETIC% 1.71 % (0.5-1.5); WHITE BLOOD COUNT 7.4 10^3/ul (4.5-11.0)
[2017-01-01 10:18] LABS: IRON 27 ug/dL (45-180)
--- NOTE | 2017-01-01 10:30 | PN ---
DATE: 01/01/2017 The patient is currently in bed. On review of systems, denying any shortness of breath, denying any chest pain, any new GI symptoms, still with some discomfort in that right knee. She is complaining o f some increased urination. PHYSICAL EXAMINATION: VITAL SIGNS: This morning, her temperature is 97.6. Her pulse is 61. Her blood pressures are runni ng with a wide range from as low as 103/67, oftentimes midday in the 120s and 130s, and then going to as high as 173/89 this morning prior to her meds. HEENT: Her conjunctivae are pale. Her lids are unremarkable. Sclerae are anicteric. NECK: Supple. There is no thyromegaly or masses. LUNGS: Clear bilaterally. Respiratory effort is reasonable. CARDIAC: S1, S2 with II/ systolic murmur best at left sternal border. In the left chest wall, the re is a noted device. ABDOMEN: Soft, nontender. No organomegaly or masses. EXTREMITIES: With marked DJD changes and deformities noted, some localized swelling and discomfort i n the right knee itself. NEUROLOGIC: She is conversing. There is no new focal sensory or motor deficit. In general, she has generalized weakness and debilitation. LABORATORY DATA: On review of labs, the WBC count is 7. Her hemoglobin did drop to 9.1. Her platel et count is 314. Her electrolytes are relatively unremarkable with a BUN of 35, which has been slowl y increasing since she has been here. Creatinine of 1.2. Digoxin is 0.5. ASSESSMENT: 1. Fall with subsequent right knee pain. CT with small-vessel disease, old cerebellar infarct. 2. Coronary artery disease. 3. Anemia with dropping hemoglobin. 4. Diabetes mellitus. 5. Hypothyroidism. 6. Hypertension. PLAN: Anemia workup has been ordered. I will obtain stool Hemoccults x 3. I will obtain B12, dequan te, iron, TIBC, ferritin, immunofixation, and LDH. I will start physical therapy for this patient. I will adjust her blood pressure medications. I will check a urinalysis with culture and sensitivity with the symptoms increased urination. Thank you very much. Robi Rayo MD cc: [id number] TT: 01/01/2017 10:30:13 Confirmation # [id number] Dictation # [id number]
[2017-01-01 12:59] LABS: URINE BILIRUBIN NEGATIVE (NEGATIVE); URINE BLOOD NEGATIVE (NEGATIVE); URINE GLUCOSE (UA) NEGATIVE (NEGATIVE); URINE KETONE NEGATIVE (NEGATIVE); URINE LEUKOCYTE ESTERASE TRACE Leu/uL (NEGATIVE); URINE PROTEIN 100 mg/dL (<30 mg/dL); URINE UROBILINOGEN 0.2 E.U./dL (<1 E.U./dL)
[2017-01-01 13:07] LABS: URINE APPEARANCE CLEAR (CLEAR); URINE COLOR YELLOW (YELLOW)
[2017-01-01 13:09] LABS: URINE RBC NEGATIVE /hpf (0-2); URINE WBC 0 - 2 /hpf (0-6)
[2017-01-01 13:10] LABS: URINE BACTERIA FEW (NEG); URINE EPITHELIAL CELLS 0 - 2 /hpf (0-5)
[2017-01-01 13:28] LABS: HEMATOCRIT 29.3 % (36.0-48.0)
[2017-01-01 17:30] VITALS: BP 140/69; PULSE 63
[2017-01-01 18:31] LABS: FOLATE 11.9 ng/mL
--- NOTE | 2017-01-03 15:51 | DS ---
This is a patient who came to [facility] after sustaining a fall with subsequent knee nessa n. The patient had a known history of coronary artery disease. The patient was known to have ____ a nemia with known history of diabetes, hypothyroidism and hypertension during her stay. CAT scan was done which noted small vessel disease and old cerebellar infarct. Knee x-ray showed no fracture. Idris cabrales was seen by orthopedist, Dr. Moore. She was started on physical therapy. She was continued on her medications for her coronary disease, hypertension and other disease processes. She was noted to have an anemia which is in the process of working up, however, remained relatively stable and it was felt that the patient would do better in a subacute rehab. She will continue to be followed. Her h emoglobin will be continued to be followed and monitored. We can monitor the progress of her knees a nd her strengthening while on therapy. She was discharged to [facility] for subacute r ehab and further followup and workup and therapy as needed. DISCHARGE MEDICATIONS: Will be as per her MAR. DISCHARGE DIAGNOSES: 1. Fall with knee pain. 2. Cerebrovascular disease with an old cerebellar infarct. 3. Coronary artery disease. 4. Anemia. 5. Diabetes mellitus. 6. Hypothyroidism. 7. Hypertension. Robi Rayo MD cc: [id number] TT: 01/03/2017 15:50:25 pa
== END 2017-01-01 18:34 | DRG 554 ==
LOC: ED 17:33 → ERH 19:53 → 3RNO 23:39
PROVIDERS: ADMIT Internal Medicine; ATTEND Internal Medicine
DX: M17.11 Unilateral primary osteoarthritis, right knee (principal); G93.89 Other specified disorders of brain; E11.9 Type 2 diabetes mellitus without complications; D64.9 Anemia, unspecified; E03.9 Hypothyroidism, unspecified; I10 Essential (primary) hypertension; M25.561 Pain in right knee; E78.5 Hyperlipidemia, unspecified; I44.0 Atrioventricular block, first degree; G89.29 Other chronic pain; H54.0 Blindness, both eyes; I25.10 Atherosclerotic heart disease of native coronary artery without angina pectoris; Z95.810 Presence of automatic (implantable) cardiac defibrillator; Z87.891 Personal history of nicotine dependence; Z86.73 Personal history of transient ischemic attack (TIA), and cerebral infarction without residual deficits; Z83.3 Family history of diabetes mellitus; Z82.49 Family history of ischemic heart disease and other diseases of the circulatory system; Z79.899 Other long term (current) drug therapy; R29.6 Repeated falls; I73.9 Peripheral vascular disease, unspecified; K59.00 Constipation, unspecified; M21.00 Valgus deformity, not elsewhere classified, unspecified site; R09.81 Nasal congestion; R14.0 Abdominal distension (gaseous)

== ENCOUNTER 2017-02-11 14:56 | Inpatient (IN) | payer MEDICARE, OTHER ==
[2017-02-11 15:04] VITALS: BMI 23.9
[2017-02-11] MEDS ORDERED: cefTRIAXone 1 gm 1 GM/100 ML BAG IVPB STA (15:05)
--- NOTE | 2017-02-11 15:23 | ED PDOC ---
Arrival/HPI - General Chief Complaint: Eye Problem Time Seen by Provider: 02/11/17 15:01 Historian: Patient, Snf, EMS EM Caveat: Dementia - History of Present Illness Time/Duration: Other (1 day) Symptom Onset: Gradual Symptom Course: Worsening Severity Level: Moderate Activities at Onset: Rest Associated Symptoms (Text): 02/11/17 15:20 [facility] [place] [facility]. Apparently, patient was normal yesterday. She started to develop some left greater than right orbital and periorbital swelling and erythema. Became much worse today and was transferred to the emergency department. She is blind in the right eye. The left eye has severe conjunctival edema and erythema with periorbital erythema edema and swelling. There is no warmth. It is unclear if this represents an acute allergic reaction or possibly periorbital cellulitis. The left is much much worse than the right. Past Medical History - Cardiac Hx Cardiac Disorders: Yes (CAD; AICD) Hx Hypertension: Yes - Pulmonary Hx Chronic Obstructive Pulmonary Disease (COPD): Yes (ex-smoker) - Neurological HX Cerebrovascular Accident: Yes (2011) - HEENT Hx HEENT Disorder: Yes Hx Blind: Yes - Renal Hx Renal Disorder: No - Endocrine/Metabolic Hx Diabetes Mellitus Type 2: Yes Hx Hypothyroidism: Yes - Hematological/Oncological Hx Blood Disorders: No - Integumentary Hx Dermatological Disorder: No - Musculoskeletal/Rheumatological Hx Musculoskeletal Disorders: Yes Hx Falls: Yes - Gastrointestinal Hx Gastrointestinal Disorders: No - Genitourinary/Gynecological Hx Genitourinary Disorders: No - Psychiatric Hx Psychophysiologic Disorder: No Hx Substance Use: No - Surgical History Other/Comment: hx right lumpectomy Family/Social History - Physician Review Nursing Documentation Reviewed: Yes Family/Social History: Unknown Family HX Smoking Status: Former Smoker Hx Alcohol Use: No Hx Substance Use: No Allergies/Home Meds Allergies/Adverse Reactions: Allergies No Known Allergies Allergy (Verified 02/11/17 15:05) Home Medications: Home Meds Medication Instructions Recorded Confirmed Ondansetron [Zofran Tab] 1 tab PO Q8 PRN 12/28/16 02/11/17 Review of Systems - Review of Systems Systems not reviewed;Unavailable: Dementia Physical Exam Vital Signs Temp Pulse Resp BP Pulse Ox 02/11/17 14:57 98.6 F 88 18 176/86 H 98 Temperature: Afebrile Blood Pressure: Hypertensive Pulse: Regular Respiratory Rate: Normal Appearance: Positive for: Well-Appearing, Non-Toxic, Comfortable Pain Distress: None Mental Status: Positive for: other (Awake alert and oriented 1 only) - Systems Exam Head: Present: Atraumatic, Normocephalic Pupils: Present: PERRL Extroacular Muscles: Present: EOMI Conjunctiva: Present: Other (Severe left much greater than right conjunctival erythema and edema with periorbital erythema and edema) Mouth: Present: Moist Mucous Membranes Pharnyx: No: ERYTHEMA, EXUDATE, TONSILS ENLARGED Neck: Present: Normal Range of Motion. No: MIDLINE TENDERNESS, Paraspinal Tenderness Respiratory/Chest: Present: Clear to Auscultation, Good Air Exchange, Decreased Breath Sounds. No: Respiratory Distress, Accessory Muscle Use Cardiovascular: Present: Regular Rate and Rhythm, Normal S1, S2. No: Murmurs Abdomen: Present: Normal Bowel Sounds. No: Tenderness, Distention, Peritoneal Signs, Rebound, Guarding Upper Extremity: Present: Normal Inspection. No: Cyanosis, Edema Lower Extremity: Present: Normal Inspection. No: Edema Neurological: Present: GCS=15, CN II-XII Intact, Speech Normal, Motor Func Grossly Intact Skin: Present: Warm, Dry, Normal Color, Other (Left greater than right periorbital erythema and edema no warmth). No: Rashes Psychiatric: Present: Alert, Oriented x 3, Normal Insight, Normal Concentration Medical Decision Making ED Course and Treatment: 02/11/17 16:10 EKG is pacing rate approximately 60 02/11/17 17:05 Discussed in detail with Dr. Simon who will admit to 's service. He requests consults with and Rashmi, who both have been called. The medical customer service representative has been called and will see the patient in the emergency department. - Lab Interpretations Lab Results: 02/11/17 15:55 Lab Results 02/11/17 15:55: PT 11.7, INR 1.08, APTT 25.6 02/11/17 15:55: WBC 5.4 D, RBC 3.94, Hgb 11.0 L, Hct 35.8 L, MCV 90.9, MCH 27.9 , MCHC 30.7 L, RDW 17.4 H, Plt Count 338, MPV 9.6, Gran % 74.7 H, Lymph % (Auto ) 14.7 L, [place] % (Auto) 8.9 H, Eos % (Auto) 1.3 L, Baso % (Auto) 0.4, Gran # 4.03, Lymph # 0.8 L, [place] # 0.5, Eos # 0.1, Baso # 0.02 - RAD Interpretation Radiology Orders: 02/11/17 15:05 CHEST PORTABLE [RAD] Stat X-ray chest 1 view shows borderline cardiomegaly with a pacemaker present. No infiltrate or effusion Sand Polisher: ED Physician - Medication Orders Current Medication Orders: Discontinued Medications Ceftriaxone Sodium (Rocephin 1 Gram Ivpb) 1 gm in 100 mls @ 200 mls/hr IVPB STAT STA PRN Reason: Protocol Stop: 02/11/17 15:34 Last Admin: 02/11/17 15:46 Dose: 200 mls/hr Methylprednisolone (Solu-Medrol) 125 mg IVP ONCE ONE Stop: 02/11/17 15:08 Last Admin: 02/11/17 15:46 Dose: 125 mg Disposition/Present on Arrival - Present on Arrival Any Indicators Present on Arrival: No History of DVT/PE: No History of Uncontrolled Diabetes: No Urinary Catheter: No History of Decub. Ulcer: No History Surgical Site Infection Following: None - Disposition Have Diagnosis and Disposition been Completed?: Yes Diagnosis: Anemia, Periorbital cellulitis, Allergic reaction Disposition: HOSPITALIZED Disposition Time: 17:17 Patient Plan: Observation Condition: FAIR
[2017-02-11 16:14] LABS: ADD MANUAL DIFF? NO
[2017-02-11 16:25] LABS: BASO # 0.02 K/mm3 (0.0-2.0); BASO % 0.4 % (0.0-3.0); EOS # 0.1 (0.0-0.7); EOS % 1.3 % (1.5-5.0); GRAN # 4.03 (1.4-6.5); GRAN % 74.7 % (50.0-68.0); HEMATOCRIT 35.8 % (36.0-48.0); LYMPH # 0.8 (1.2-3.4); LYMPH % 14.7 % (22.0-35.0); MEAN CELL VOLUME 90.9 fL (80.0-105.0); MEAN CORPUSCULAR HEMOGLOBIN 27.9 pg (25.0-35.0); MEAN CORPUSCULAR HGB CONC 30.7 g/dl (31.0-37.0); MEAN PLATELET VOLUME 9.6 fl (7.0-11.0); MONO # 0.5 (0.1-0.6); MONO % 8.9 % (1.0-6.0); PLATELET COUNT 338 10^3/uL (120.0-450.0); RED CELL DISTRIBUTION WIDTH 17.4 % (11.5-14.5); WHITE BLOOD COUNT 5.4 10^3/ul (4.5-11.0)
--- NOTE | 2017-02-11 16:29 | RAD ---
HISTORY: admit COMPARISON: 12/28/2016 FINDINGS: LUNGS: No active pulmonary disease. PLEURA: No significant pleural effusion identified, no pneumothorax apparent. CARDIOVASCULAR: AICD noted. OSSEOUS STRUCTURES: No significant abnormalities. VISUALIZED UPPER ABDOMEN: Normal. OTHER FINDINGS: None. IMPRESSION: No active disease.
[2017-02-11 16:30] LABS: INR 1.08 (0.93-1.08); PARTIAL THROMBOPLASTIN TIME 25.6 Seconds (23.7-30.8)
[2017-02-11 17:13] LABS: ALB/GLOB RATIO 0.9 (1.1-1.8); ALKALINE PHOSPHATASE 80 U/L (38-133); ALT/SGPT 37 U/L (7-56); AST/SGOT 24 U/L (15-39); BILIRUBIN,TOTAL 0.4 mg/dL (0.2-1.3); BLOOD UREA NITROGEN 22 mg/dL (7-21); CALCIUM 9.2 mg/dL (8.4-10.5); CARBON DIOXIDE 31 mmol/L (21-33); CHLORIDE 106 mmol/L (98-107); GFR AFRICAN-AMERICAN > 60; GLUCOSE,RANDOM 101 mg/dL (70-110); POTASSIUM 4.4 mmol/L (3.6-5.0); SODIUM 142 mmol/L (132-148); TOTAL PROTEIN 6.7 g/dL (5.8-8.3)
[2017-02-11 17:26] LABS: TROPONIN I < 0.01 ng/mL
--- NOTE | 2017-02-11 17:36 | CP.PCM.HP ---
History of Present Illness - History of Present Illness History of Present Illness: CC: left eye swelling 81yo F with PMHx of CAD, HTN, HLD, Hypothyroid, DM, Breast CA s/p lumpectomy here for evaluation of bilateral eye swelling. Patient comes in from group home for evaluation. States that her left eye was itching last night and so she scratched it twice yesterday. When she woke up this morning, both her eyes were swollen with a lot of discharge. Left eye is worse than right. Decreased vision due to swelling but denies any vision problems. Of note, she has a history of right eye blindness. She denies any pain. Denies any fever or chills. No headaches. No facial pain. No sinus pain, or pressure. No CP/SOB. No N/V/D. She states that she is at the group home in order to get rehab prior to having her knee replaced. She is ambulatory using a walker. PMD: Lorenzo Deleon PMHx - CAD, HTN, HLD, Hypothyroid, DM, Breast CA s/p R lumpectomy PSHx - AICD, R lumpectomy Family - Mom: arthritis, HTN; Dad: CAD, DM Social - [facility] resident. Former smoker, quit 18years ago, smoked a pack per day for 30 years. No ETOH, no illicit drugs Allergy - reports allergy to an unknown HTN medication, oral swelling Present on Admission - Present on Admission Any Indicators Present on Admission: No Review of Systems - Review of Systems All systems: reviewed and no additional remarkable complaints except - Constitutional Constitutional: absent: Chills, Fever - EENT Eyes: Blurred Vision, Irritation, Itchy Eyes Ears: absent: Decreased Hearing Nose/Mouth/Throat: absent: Epistaxis, Nasal Congestion - Cardiovascular Cardiovascular: absent: Chest Pain, Diaphoresis, Dyspnea - Respiratory Respiratory: absent: Cough, Dyspnea - Gastrointestinal Gastrointestinal: absent: Abdominal Pain, Diarrhea, Nausea, Vomiting - Genitourinary Genitourinary: absent: Dysuria - Musculoskeletal Musculoskeletal: absent: Abnormal Gait, Back Pain - Neurological Neurological: absent: Confusion, Dizziness, Focal Weakness, Headaches - Psychiatric Psychiatric: absent: Anxiety, Confusion Past Patient History - Past Social History Smoking Status: Former Smoker - CARDIAC Hx Cardiac Disorders: Yes (CAD; AICD) Hx Hypertension: Yes - PULMONARY Hx Chronic Obstructive Pulmonary Disease (COPD): Yes (ex-smoker) - NEUROLOGICAL HX Cerebrovascular Accident: Yes (2011) - HEENT Hx HEENT Problems: Yes Hx Blind: Yes - RENAL Hx Chronic Kidney Disease: No - ENDOCRINE/METABOLIC Hx Diabetes Mellitus Type 2: Yes Hx Hypothyroidism: Yes - HEMATOLOGICAL/ONCOLOGICAL Hx Blood Disorders: No - INTEGUMENTARY Hx Dermatological Problems: No - MUSCULOSKELETAL/RHEUMATOLOGICAL Hx Musculoskeletal Disorders: Yes Hx Falls: Yes - GASTROINTESTINAL Hx Gastrointestinal Disorders: No - GENITOURINARY/GYNECOLOGICAL Hx Genitourinary Disorders: No - PSYCHIATRIC Hx Psychophysiologic Disorder: No Hx Substance Use: No - SURGICAL HISTORY Other/Comment: hx right lumpectomy Meds Allergies/Adverse Reactions: Allergies Allergy/AdvReac Type Severity Reaction Status Date / Time No Known Allergies Allergy Verified 02/11/17 15:05 Physical Exam - Constitutional Appears: Well - Head Exam Head Exam: ATRAUMATIC, NORMAL INSPECTION, NORMOCEPHALIC - Eye Exam Eye Exam: Conjunctival injection, Periorbital swelling, Periorbital tenderness Additional comments: left greater than right periorbital swelling. left eye conjunctival erythema, with purulent dried discharge. Extraoccular muscles intact. Denies decreased vision. - ENT Exam ENT Exam: Mucous Membranes Moist - Respiratory Exam Respiratory Exam: Clear to Auscultation Bilateral. absent: Decreased Breath Sounds, Rales, Rhonchi, Respiratory Distress - Cardiovascular Exam Cardiovascular Exam: RRR, +S1, +S2. absent: JVD - GI/Abdominal Exam GI & Abdominal Exam: Soft. absent: Distended, Firm, Tenderness - Extremities Exam Extremities exam: Positive for: normal inspection. Negative for: calf tenderness, pedal edema - Neurological Exam Neurological exam: Alert, Oriented x3 - Psychiatric Exam Psychiatric exam: Normal Affect, Normal Mood - Skin Skin Exam: Dry, Intact, Normal Color, Warm Results - Vital Signs Recent Vital Signs: Last Vital Signs Temp 98.6 F 02/11/17 14:57 Pulse 82 02/11/17 16:57 Resp 18 02/11/17 16:57 BP 177/93 H 02/11/17 16:57 Pulse Ox 98 02/11/17 16:57 - Labs Result Diagrams: 02/11/17 15:55 02/11/17 16:50 Assessment & Plan - Assessment and Plan (Free Text) Assessment: 81yo F with PMHx of CAD, HTN, HLD, Hypothyroid, DM here for evaluation of left eye greater than right eye periorbital swelling, conjunctivitis, purulent discharge. 1. Periorbital Swelling, conjunctivitis f/u orbital CT afebrile no leukocytosis Consult Ophthalmology, Dr. Brandon, appreciate recs Rocephin Tobredex eye drops Maxitrol eye drops artificial tears wash all four eye lids with Jorge A's baby soap warm compress to affected area ID consulted, Dr. Caraballo, appreciate recs 2. Hx of DM Accuchecks Low dose sliding scale Neurontin 3. Hx of HTN, CAD, HLD EKG reviewed, paced rhythm at 60. No significant acute changes continue home meds Amiodarone, Atorvastatin, Coreg, Lanoxin, Hydralazine, Imdur 4. PPx SCDs Protonix 40 PO Daily Discussed case with Dr. Simon. Accepts patient to Dr. Deleon's service. Discussed case with Ophthalmology, Dr. Jose David Brandon; Requested orders as placed and states will evaluate the patient Early tomorrow AM. Hardik Elliott PGY1
[2017-02-11] MEDS ORDERED: Tobramycin/Dexamethasone (Tobradex) Opth Sol (2.5 ml) OU SCH (18:15)
[2017-02-11] MEDS: Sodium Chloride 0.45% 1,000 ML IV SCH (19:46)
--- NOTE | 2017-02-11 20:05 | HP ---
I was called early this morning from the senior care about the patient with swelling of the eyes. T he nurse told me at the senior care that the eyes were crusted over, pussy, the eyelashes were kind of pasty with the right eye and the left eye, and they were not that swollen, they were not that red and they felt it was conjunctivitis, which she has had before. I start her on TobraDex eyedrops. Idris cabrales has had them before also. In about 6-7 hours later, I got a call that the eyes were extremely swol anuradha, bright red and that they were very worried, so I sent her to the [facility]. She is an 81-year-old female with bilateral eye swelling and redness; the left eye is much more red and swo llen. It started earlier today. Yesterday, the eyes were fine. She is blind in the right eye alrea dy. The left eye is the good eye; she said it is 20/20 vision after surgery. I think she had a lens placed. Now there is severe conjunctival edema and erythema. She can see, but she is worried about going blind, and there is periorbital cellulitis. The left eye is much worse than the right eye. PAST MEDICAL HISTORY: CAD, she has an ICD, hypertension, ex-smoker, COPD, history of CVA, right eye is blind, type 2 diabetes. She has multiple falls. She has a history of a right lumpectomy. FAMILY HISTORY: There is diabetes in the family. SOCIAL HISTORY: She is a former smoker, no alcohol, no drugs. ALLERGIES: No known drug allergies that she knows of. MEDICATIONS: She takes a whole bunch of medications. She is on simethicone, nasal spray, promethazi ne, acetaminophen, Zofran, hydralazine, Claritin, Cordarone, Coreg, Feosol, Imdur, Lanoxin, Lipitor, Neurontin, Protonix, Synthroid for the hypothyroid. VITAL SIGNS: She has 98.6 temp, 88 pulse, 18 respiratory rate, 176/86 blood pressure, 90% O2 sat on room air. REVIEW OF SYSTEMS: She denies change in vision, although the left eye is very swollen and I do not k now how she can see out of it. No changes in hearing, but old. No sore throat. No chest pain, no s hortness of breath, no abdominal pain. She has weakness in the legs. She is pleasant, mildly confus ed. PHYSICAL EXAMINATION: HEENT: Head is atraumatic, normocephalic. Extraocular muscles cannot really tell; she will not open the right eye. The left eye is much swollen. Severe right conjunctiva erythema and edema. Left ey e has got severe periorbital erythema and edema. The left is much worse than the right. Throat is m oist. NECK: Supple. HEART: Regular rate. LUNGS: Decreased breath sounds but clear to auscultation, poor inspiration. ABDOMEN: Soft, nontender, positive bowel sounds, no guarding, no rebound. EXTREMITIES: No edema. NEUROLOGIC: GCS is 15. Cranial nerves II-XII grossly intact. She is alert and oriented. ASSESSMENT AND PLAN: I discussed this with the resident. Put in a lot of orders. I called on the samra richardson doctor and the infectious disease doctor. She is now on Apresoline, Artificial tears, Claritin, C olace, Cordarone, Coreg, Feosol, insulin, Imdur, digoxin, atorvastatin. She is on Maxitrol which is neomycin, polymyxin, dexamethasone. I had her on TobraDex eyedrops this morning. It did not do much , so I will discontinue that and put her on Maxitrol, Neurontin, Protonix, she is on Rocephin for an IV antibiotic, IV fluids at 40, levothyroxine, and she had a dose of Rocephin. She will get another one tomorrow to cover any infectious etiology of the eye. She has a 142 sodium, potassium 4.4, BUN 22, creatinine 0.9, GFR is greater than 60, sugar is 101. C alcium 9.2, total bili is 0.4, AST is 24, ALT is 37, alk phos is 80. Lactic dehydrogenase is 594, to rosmery creatinine kinase 155, troponin I is less than 0.01. Total protein 6.7, albumin is 3.3. White c ount is 5.4, hemoglobin 11, hematocrit 35.8, platelets of 338. INR is 1.08. I discussed at length with the resident. He will be watching her all night. He will be in contact w rah kuhn. We already spoke to the form grader operator, will be in [place] early tomorrow morning. Blood cultures and wound cultures were done, has a CAT scan of the orbits pending. Hopefully, she will do well. Very aggressive eye infection. I am hoping she will be improved by tomorrow. We will check h er labs tomorrow. A very sweet lady with severe inflamed left eye worse than the right eye, periorbi rosmery cellulitis with swelling of the left eye, hyperemia. Joshua Simon DO cc: [id number] TT: 02/11/2017 20:04:10 tristin
--- NOTE | 2017-02-11 20:10 | CP.PCM.CON ---
History of Present Illness - History of Present Illness History of Present Illness: CC: left eye swelling 81yo F with PMHx of CAD, HTN, HLD, Hypothyroid, DM, Breast CA s/p lumpectomy here for evaluation of bilateral eye swelling. Patient comes in from long-term for evaluation. States that her left eye was itching last night and so she scratched it twice yesterday. When she woke up this morning, both her eyes were swollen with a lot of discharge. Left eye is worse than right. Decreased vision due to swelling but denies any vision problems. Of note, she has a history of right eye blindness. She denies any pain. Denies any fever or chills. No headaches. No facial pain. No sinus pain, or pressure. No CP/SOB. No N/V/D. She states that she is at the long-term in order to get rehab prior to having her knee replaced. She is ambulatory using a walker. PMD: Lorenzo Deleon PMHx - CAD, HTN, HLD, Hypothyroid, DM, Breast CA s/p R lumpectomy PSHx - AICD, R lumpectomy Family - Mom: arthritis, HTN; Dad: CAD, DM Social - [facility]. Former smoker, quit 18years ago, smoked a pack per day for 30 years. No ETOH, no illicit drugs Allergy - reports allergy to an unknown HTN medication, oral swelling Past Patient History - Past Social History Smoking Status: Former Smoker - CARDIAC Hx Cardiac Disorders: Yes (CAD; AICD) Hx Hypertension: Yes - PULMONARY Hx Chronic Obstructive Pulmonary Disease (COPD): Yes (ex-smoker) - NEUROLOGICAL HX Cerebrovascular Accident: Yes (2011) - HEENT Hx HEENT Problems: Yes Hx Blind: Yes - RENAL Hx Chronic Kidney Disease: No - ENDOCRINE/METABOLIC Hx Diabetes Mellitus Type 2: Yes Hx Hypothyroidism: Yes - HEMATOLOGICAL/ONCOLOGICAL Hx Blood Disorders: No - INTEGUMENTARY Hx Dermatological Problems: No - MUSCULOSKELETAL/RHEUMATOLOGICAL Hx Musculoskeletal Disorders: Yes Hx Falls: Yes - GASTROINTESTINAL Hx Gastrointestinal Disorders: No - GENITOURINARY/GYNECOLOGICAL Hx Genitourinary Disorders: No - PSYCHIATRIC Hx Psychophysiologic Disorder: No Hx Substance Use: No - SURGICAL HISTORY Other/Comment: hx right lumpectomy Meds Allergies/Adverse Reactions: Allergies Allergy/AdvReac Type Severity Reaction Status Date / Time No Known Allergies Allergy Verified 02/11/17 15:05 - Medications Medications: Current Medications Amiodarone HCl (Cordarone) 200 mg PO DAILY [facility] Artificial Tears (Artificial Tears) 1 ml OU TID [facility] Atorvastatin Calcium (Lipitor) 20 mg PO DIN [facility] Carvedilol (Coreg) 25 mg PO BID [facility] Last Admin: 02/11/17 17:59 Dose: 25 mg Digoxin (Lanoxin) 0.125 mg PO HS [facility] Docusate Sodium (Colace) 100 mg PO BID [facility] Last Admin: 02/11/17 17:58 Dose: 100 mg Ferrous Sulfate (Feosol) 324 mg PO TID [facility] Last Admin: 02/11/17 18:11 Dose: 324 mg Gabapentin (Neurontin) 300 mg PO HS [facility] PRN Reason: Protocol Hydralazine HCl (Apresoline) 37.5 mg PO TID [facility] Last Admin: 02/11/17 17:58 Dose: 37.5 mg Sodium Chloride (Sodium Chloride 0.45%) 1,000 mls @ 40 mls/hr IV .Q24H [facility] Last Admin: 02/11/17 19:46 Dose: 40 mls/hr Ceftriaxone Sodium (Rocephin 1 Gram Ivpb) 1 gm in 100 mls @ 100 mls/hr IVPB DAILY [facility] PRN Reason: Protocol Insulin Human Regular (Humulin R Low) 0 units SC ACHS [facility] PRN Reason: Protocol Isosorbide Mononitrate (Imdur) 60 mg PO DAILY [facility] Levothyroxine Sodium (Synthroid) 50 mcg PO ACB [facility] Loratadine (Claritin) 10 mg PO DAILY PRN PRN Reason: Nasal congestion Neomycin/Polymyxin/Dexamethasone (Maxitrol Opht Susp) 1 ml OU QID [facility] Pantoprazole Sodium (Protonix Ec Tab) 40 mg PO ACB [facility] Results - Vital Signs Recent Vital Signs: Last Vital Signs Temp 98.6 F 02/11/17 18:00 Pulse 89 02/11/17 18:00 Resp 18 02/11/17 18:00 BP 158/90 H 02/11/17 19:38 Pulse Ox 99 02/11/17 18:00 - Labs Result Diagrams: 02/11/17 15:55 02/11/17 16:50
[2017-02-11] MEDS: Digoxin 125 mcg (0.125 mg) Tab PO SCH (21:52)
[2017-02-11] MEDS: Neomy-Polymyx-Dexameth Ophth Susp (5 ml) OU SCH (22:01)
[2017-02-11] MEDS: Insulin Reg-LOW-Coverage SC SCH (22:02)
[2017-02-12 07:30] LABS: ADD MANUAL DIFF? NO
[2017-02-12 07:33] LABS: GRAN # 3.38 (1.4-6.5); HEMATOCRIT 34.5 % (36.0-48.0); LYMPH # 0.4 (1.2-3.4); LYMPH % 9.4 % (22.0-35.0); MEAN CELL VOLUME 90.8 fL (80.0-105.0); MEAN CORPUSCULAR HEMOGLOBIN 27.9 pg (25.0-35.0); MEAN CORPUSCULAR HGB CONC 30.7 g/dl (31.0-37.0); MEAN PLATELET VOLUME 9.1 fl (7.0-11.0); MONO # 0.1 (0.1-0.6); MONO % 2.6 % (1.0-6.0); PLATELET COUNT 298 10^3/uL (120.0-450.0); RED CELL DISTRIBUTION WIDTH 16.9 % (11.5-14.5); WHITE BLOOD COUNT 3.8 10^3/ul (4.5-11.0)
[2017-02-12 07:48] LABS: BLOOD UREA NITROGEN 24 mg/dL (7-21); CALCIUM 8.4 mg/dL (8.4-10.5); CARBON DIOXIDE 28 mmol/L (21-33); CHLORIDE 105 mmol/L (95-110); GFR AFRICAN-AMERICAN > 60; GLUCOSE,RANDOM 155 mg/dL (70-110); POTASSIUM 4.1 mmol/L (3.6-5.0); SODIUM 140 mmol/L (132-148)
--- NOTE | 2017-02-12 08:25 | CON ---
DATE: 02/12/2017 The patient is an 81-year-old black female who was admitted to the [facility] last night with a presumptive diagnosis of orbital cellulitis. PHYSICAL EXAMINATION: EYES: The lid and adnexal exam shows an extensive blepharoconjunctivitis with a purulent discharge i n both eyes. 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 In the left eye, the vision is 20/80. 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 The conjunctivae shows marked injection in both eyes with subconjunctival hemo rrhage in both eyes. The lids show edematous lids with the purulent discharge and blepharitis. [place] eal exam is normal in the left eye. Fundus exam was normal. ASSESSMENT: The patient has purulent conjunctivitis with blepharitis. I spoke to the nurses and I recommended extensive cleaning of both lids with warm compresses. I also recommended Maxitrol ophthalmic ointment 1 application to both lids 3 times a day and TobraDex solut ion 1 drop to both eyes 4 times a day. Saurav Brandon MD cc: [id number] TT: 02/12/2017 08:24:25 Confirmation # [id number] Dictation # [id number]
[2017-02-12] MEDS: Levothyroxine 50 MCG TAB PO SCH (09:22)
[2017-02-12] MEDS: Insulin Reg-LOW-Coverage SC SCH ×4 (09:22→22:00)
[2017-02-12] MEDS: Pantoprazole 40 mg EC Tab PO SCH (09:23)
--- NOTE | 2017-02-12 09:29 | CT ---
PROCEDURE: CT ORBITS WITHOUT CONTRAST. HISTORY: periorbital cellulitis COMPARISON: None available. TECHNIQUE: Axial CT images of the orbits were obtained. Coronal and sagittal reformats were generated. Radiation dose: Total exam DLP = 711 mGy-cm. This CT exam was performed using one or more of the following dose reduction techniques: Automated exposure control, adjustment of the mA and/or kV according to patient size, and/or use of iterative reconstruction technique. FINDINGS: RIGHT ORBIT: RIGHT BONY ORBIT: Normal. RIGHT INTRAORBITAL STRUCTURES: Globe: There is an irregular contour of the globe with calcification of the wall and loss of the lens and anterior chamber Extraocular muscles: Normal. Post septal space: Normal. Optic Nerve: Normal. Lacrimal Apparatus: Normal. RIGHT PRESEPTAL SOFT TISSUES: Normal. LEFT ORBIT: LEFT BONY ORBIT: Normal. LEFT INTRAORBITAL STRUCTURES: Globe: Normal. Extraocular muscles: Normal. Post septal space: Normal Optic Nerve: Normal. . Lacrimal Apparatus: Normal. LEFT PRESEPTAL SOFT TISSUES: There is soft tissue swelling anterior and lateral to the left orbit. OTHER: None. IMPRESSION: Preseptal soft tissue swelling anterior and lateral to the left orbit. Collapse of the right globe with loss of the anterior chamber and lens.
[2017-02-12] MEDS: Aritificial Tears (15ml) OU SCH ×3 (09:31→17:27)
[2017-02-12] MEDS: Neomy-Polymyx-Dexameth Ophth Susp (5 ml) OU SCH ×3 (09:32→17:22)
[2017-02-12] MEDS ORDERED: cefTRIAXone 1 gm 1 GM/100 ML BAG IVPB SCH (10:00)
[2017-02-12] MEDS ORDERED: Simethicone 80 mg Chewtab PO PRN (10:03)
--- NOTE | 2017-02-12 14:21 | CP.PCM.PN ---
<Albania Carranza - Last Filed: 02/12/17 16:08> Subjective - Date & Time of Evaluation Date of Evaluation: 02/12/17 Time of Evaluation: 07:45 - Subjective Subjective: Medicine progress note for Dr Deleon and Dr Rayo service. Patient with no acute events. Evaluated by ophthalmology. Patient denies cp, sob, palpitations, fever or chills. Patient denies n/v/d. 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 Denies eye pain. Objective - Vital Signs/Intake and Output Vital Signs (last 24 hours): Temp Pulse Resp BP Pulse Ox 98.1 F 65 19 163/59 H 93 L 02/12/17 08:50 02/12/17 09:24 02/12/17 08:50 02/12/17 09:24 02/12/17 08:50 Intake and Output: 02/12/17 02/12/17 06:59 18:59 Intake Total 860 240 Balance 860 240 - Medications Medications: Current Medications Amiodarone HCl (Cordarone) 200 mg PO DAILY [facility] Last Admin: 02/12/17 09:24 Dose: 200 mg Artificial Tears (Artificial Tears) 1 ml OU TID [facility] Last Admin: 02/12/17 09:31 Dose: 1 drop Atorvastatin Calcium (Lipitor) 20 mg PO DIN [facility] Carvedilol (Coreg) 25 mg PO BID [facility] Last Admin: 02/12/17 09:23 Dose: 25 mg Digoxin (Lanoxin) 0.125 mg PO HS [facility] Last Admin: 02/11/17 21:52 Dose: 0.125 mg Docusate Sodium (Colace) 100 mg PO BID [facility] Last Admin: 02/12/17 09:22 Dose: 100 mg Ferrous Sulfate (Feosol) 324 mg PO TID [facility] Last Admin: 02/12/17 09:22 Dose: 324 mg Gabapentin (Neurontin) 300 mg PO [facility] PRN Reason: Protocol Last Admin: 02/11/17 21:52 Dose: 300 mg Hydralazine HCl (Apresoline) 37.5 mg PO TID [facility] Last Admin: 02/12/17 09:25 Dose: 37.5 mg Sodium Chloride (Sodium Chloride 0.45%) 1,000 mls @ 40 mls/hr IV .Q24H [facility] Last Admin: 02/11/17 19:46 Dose: 40 mls/hr Ceftaroline Fosamil 400 mg/ (Sodium Chloride) 100 mls @ 100 mls/hr IVPB Q12 [facility] PRN Reason: Protocol Stop: 02/18/17 22:01 Last Admin: 02/12/17 09:27 Dose: 100 mls/hr Insulin Human Regular (Humulin R Low) 0 units SC ACHS [facility] PRN Reason: Protocol Last Admin: 02/12/17 12:48 Dose: 1 units Isosorbide Mononitrate (Imdur) 60 mg PO DAILY [facility] Last Admin: 02/12/17 09:27 Dose: 60 mg Levothyroxine Sodium (Synthroid) 50 mcg PO ACB [facility] Last Admin: 02/12/17 09:22 Dose: 50 mcg Loratadine (Claritin) 10 mg PO DAILY PRN PRN Reason: Nasal congestion Neomycin/Polymyxin/Dexamethasone (Maxitrol Opht Susp) 1 ml OU QID [facility] Last Admin: 02/12/17 09:32 Dose: 1 drop Pantoprazole Sodium (Protonix Ec Tab) 40 mg PO ACB [facility] Last Admin: 02/12/17 09:23 Dose: 40 mg Simethicone (Mylicon Chew Tab) 80 mg PO HS PRN PRN Reason: GI distress - Labs Labs: 02/12/17 07:00 02/12/17 07:00 PT 11.7 Seconds (9.9-11.8) 02/11/17 15:55 INR 1.08 (0.93-1.08) 02/11/17 15:55 APTT 25.6 Seconds (23.7-30.8) 02/11/17 15:55 - Constitutional Appears: No Acute Distress - Head Exam Head Exam: ATRAUMATIC, NORMAL INSPECTION, NORMOCEPHALIC - Eye Exam Eye Exam: Periorbital swelling Additional comments: left worst than right, with conjunctiva ejection. global eye movement impairs, able to open right eyes, Edema worst of the left side than right. + purulent drainage. - ENT Exam ENT Exam: Normal Exam - Neck Exam Neck Exam: Normal Inspection - Respiratory Exam Respiratory Exam: Clear to Ausculation Bilateral, NORMAL BREATHING PATTERN. absent: Rales, Rhonchi, Wheezes, Respiratory Distress, Stridor - Cardiovascular Exam Cardiovascular Exam: REGULAR RHYTHM, RRR, +S1, +S2 - GI/Abdominal Exam GI & Abdominal Exam: Soft, Normal Bowel Sounds. absent: Distended, Firm, Guarding, Rigid, Tenderness - Extremities Exam Extremities Exam: Pedal Edema - Back Exam Back Exam: NORMAL INSPECTION - Neurological Exam Neurological Exam: Oriented x3 Additional comments: Eyes closed due to pain. - Psychiatric Exam Psychiatric exam: Flat Affect - Skin Skin Exam: Cyanosis, Dry, Normal Color, Warm Assessment and Plan - Assessment and Plan (Free Text) Assessment: Patient is an 81 y/o with CAD, HTN, HLD, Hypothyroid, DM, Breast CA s/p lumpectomy admitted with b/l cellulites. Plan: 1) Orbital cellulites - ophthalmology on consult, recommendation appreciated - maxitrol 1 drop tid and Tobradex 1 drop qid - eye cleaning as ordered - Gram positive cocci on left eye wound culture - ID following as well - Started on teflaro - ns@40 ml/hr 2) CAD - Will obtain digoxin level - will continue coreg, Lipitor, amiodorone, and imdur - patient is also on hydralazine for htn, will increase the dose to 50 mg bid. 3) DM - ISS - Accuchecks achs - carb controlled diet 4) Hypothyroid- will continue synthroid 5) Neuropathy- continue gabapentin 6) Constipation- continue colace and semethicone. 7) Chronic anemia - h/h stable, will continue to monitor. 8) DVT and gi prophylaxis- protonix, and Lovenox sc. Patient seen, examined, case discussed with Dr Deleon. <Jaquan Deleon - Last Filed: 02/25/17 19:05> Objective - Vital Signs/Intake and Output Vital Signs (last 24 hours): Temp Pulse Resp BP Pulse Ox 98 F 60 20 131/61 93 L 02/15/17 08:47 02/15/17 17:20 02/15/17 08:47 02/15/17 17:20 02/15/17 08:47 - Labs Labs: 02/15/17 08:00 02/15/17 08:00 PT 11.7 Seconds (9.9-11.8) 02/11/17 15:55 INR 1.08 (0.93-1.08) 02/11/17 15:55 APTT 25.6 Seconds (23.7-30.8) 02/11/17 15:55 Attending/Attestation - Attestation I have personally seen and examined this patient.: Yes I have fully participated in the care of the patient.: Yes I have reviewed all pertinent clinical information, including history, physical exam and plan: Yes Notes (Text): 02/25/17 19:05 Medical record note made by the resident after discussion with my direction and input after the patient was personally seen and examined by me. I have reviewed the chart and agree that the record accurately reflects by personal performance of the history, physical exam, data review, and medical decision-making, in the course for the patient. I have also personally directed the plan of care.
--- NOTE | 2017-02-12 15:51 | CP.PCM.CON ---
History of Present Illness - History of Present Illness History of Present Illness: 81 year old female with PMH of HTN, dyslipidemia, CAD, DM, history of breast cancer S/P lumpectomy, hypothyroidism, was sent in from the longterm due to bilateral eyelid swelling, more so on the left. Apparently the patient was having itching along the eyelids and started scratching them , which caused some swelling. The patient denies pain on movement of her eyes. She denies fever or chills, no nausea or vomiting, no headache or dizziness, no chest pain , no SOB at rest, no abdominal pain, no diarrhea, no dysuria. In the ED, CT of the orbit showed preseptal soft tissue swelling on the left eye. Infectious Diseases consult is requested to further evaluate and manage. Review of Systems - Review of Systems All systems: reviewed and no additional remarkable complaints except (as per HPI ) Past Patient History - Past Social History Smoking Status: Former Smoker - CARDIAC Hx Cardiac Disorders: Yes (cad) Hx Hypercholesterolemia: Yes Hx Hypertension: Yes Hx Internal Defibrillator: Yes (aicd) - PULMONARY Hx Respiratory Disorders: Yes Hx Asthma: Yes Hx Chronic Obstructive Pulmonary Disease (COPD): Yes Hx Emphysema: Yes - NEUROLOGICAL Hx Neurological Disorder: Yes HX Cerebrovascular Accident: Yes (2011) - HEENT Hx HEENT Problems: Yes Hx Blind: Yes (leaglly jeremiah right eye) - RENAL Hx Chronic Kidney Disease: No - ENDOCRINE/METABOLIC Hx Endocrine Disorders: Yes Hx Diabetes Mellitus Type 2: Yes Hx Hypothyroidism: Yes - HEMATOLOGICAL/ONCOLOGICAL Hx Blood Disorders: Yes Hx Anemia: Yes (iron deficient) Hx Cancer: Yes (right breat lumpectomy) - INTEGUMENTARY Hx Dermatological Problems: No - MUSCULOSKELETAL/RHEUMATOLOGICAL Hx Falls: Yes - GASTROINTESTINAL Hx Gastrointestinal Disorders: No - GENITOURINARY/GYNECOLOGICAL Hx Genitourinary Disorders: Yes (frequency) - PSYCHIATRIC Hx Substance Use: No - SURGICAL HISTORY Hx Surgeries: Yes (rigth breast lumpectomy, AICD placement) Meds Allergies/Adverse Reactions: Allergies Allergy/AdvReac Type Severity Reaction Status Date / Time No Known Allergies Allergy Verified 02/11/17 15:05 - Medications Medications: Current Medications Amiodarone HCl (Cordarone) 200 mg PO DAILY [facility] Last Admin: 02/12/17 09:24 Dose: 200 mg Artificial Tears (Artificial Tears) 1 ml OU TID [facility] Last Admin: 02/12/17 14:47 Dose: 1 drop Atorvastatin Calcium (Lipitor) 20 mg PO DIN [facility] Carvedilol (Coreg) 25 mg PO BID [facility] Last Admin: 02/12/17 09:23 Dose: 25 mg Digoxin (Lanoxin) 0.125 mg PO HS [facility] Last Admin: 02/11/17 21:52 Dose: 0.125 mg Docusate Sodium (Colace) 100 mg PO BID [facility] Last Admin: 02/12/17 09:22 Dose: 100 mg Enoxaparin Sodium (Lovenox) 40 mg SC DAILY [facility] PRN Reason: Protocol Ferrous Sulfate (Feosol) 324 mg PO TID [facility] Last Admin: 02/12/17 14:47 Dose: 324 mg Gabapentin (Neurontin) 300 mg PO HS [facility] PRN Reason: Protocol Last Admin: 02/11/17 21:52 Dose: 300 mg Hydralazine HCl (Apresoline) 50 mg PO BID [facility] Sodium Chloride (Sodium Chloride 0.45%) 1,000 mls @ 40 mls/hr IV .Q24H [facility] Last Admin: 02/11/17 19:46 Dose: 40 mls/hr Ceftaroline Fosamil 400 mg/ (Sodium Chloride) 100 mls @ 100 mls/hr IVPB Q12 [facility] PRN Reason: Protocol Stop: 02/18/17 22:01 Last Admin: 02/12/17 09:27 Dose: 100 mls/hr Insulin Human Regular (Humulin R Low) 0 units SC ACHS [facility] PRN Reason: Protocol Last Admin: 02/12/17 12:48 Dose: 1 units Isosorbide Mononitrate (Imdur) 60 mg PO DAILY [facility] Last Admin: 02/12/17 09:27 Dose: 60 mg Levothyroxine Sodium (Synthroid) 50 mcg PO ACB [facility] Last Admin: 02/12/17 09:22 Dose: 50 mcg Loratadine (Claritin) 10 mg PO DAILY [facility] PRN Reason: Nasal congestion Neomycin/Polymyxin/Dexamethasone (Maxitrol Opht Susp) 0 ml OU TID [facility] Pantoprazole Sodium (Protonix Ec Tab) 40 mg PO ACB [facility] Last Admin: 02/12/17 09:23 Dose: 40 mg Simethicone (Mylicon Chew Tab) 80 mg PO [facility] PRN PRN Reason: GI distress Tobramycin/Dexamethasone (Tobradex Opht Susp) 0 ml OU QID [facility] Physical Exam - Constitutional Appears: Non-toxic, No Acute Distress - Head Exam Head Exam: NORMAL INSPECTION - Eye Exam Eye Exam: Periorbital swelling (on the left with some erythema, no discharge noted) - ENT Exam ENT Exam: Mucous Membranes Moist - Neck Exam Neck exam: Negative for: Lymphadenopathy, Meningismus - Respiratory Exam Respiratory Exam: Decreased Breath Sounds - Cardiovascular Exam Cardiovascular Exam: +S1, +S2 - GI/Abdominal Exam GI & Abdominal Exam: Soft. absent: Tenderness Results - Vital Signs Recent Vital Signs: Last Vital Signs Temp 98.1 F 02/12/17 08:50 Pulse 65 02/12/17 09:24 Resp 19 02/12/17 08:50 BP 163/59 H 02/12/17 09:24 Pulse Ox 93 L 02/12/17 08:50 - Labs Result Diagrams: 02/12/17 07:00 02/12/17 07:00 Assessment & Plan - Assessment and Plan (Free Text) Plan: Assessment left periorbital preseptal cellulitis HTN dyslipidemia CAD DM history of breast cancer S/P lumpectomy hypothyroidism Plan Started Ceftaroline pending blood cx Reviewed CT orbit which showed the preseptal soft tissue swelling on the left Will monitor clinical response
[2017-02-12] MEDS: Enoxaparin 40 mg Syringe SC SCH (16:39)
--- NOTE | 2017-02-12 16:45 | CARD ---
APPROVED REPORT EKG Measurement Heart [id number] <Conclusion> AV sequential or dual chamber electronic pacemaker
[2017-02-12] MEDS: Tobramycin/Dexamethasone (Tobradex) Opth Sol (2.5 ml) OU SCH ×2 (17:21→21:46)
[2017-02-12] MEDS: Sodium Chloride 0.45% 1,000 ML IV SCH (17:42)
[2017-02-12] MEDS: Digoxin 125 mcg (0.125 mg) Tab PO SCH (21:46)
[2017-02-13] MEDS: Sodium Chloride 0.45% 1,000 ML IV SCH (02:11)
[2017-02-13 07:18] LABS: ADD MANUAL DIFF? NO
[2017-02-13 07:25] LABS: BASO # 0.01 K/mm3 (0.0-2.0); BASO % 0.2 % (0.0-3.0); EOS % 0.6 % (1.5-5.0); GRAN # 4.95 (1.4-6.5); HEMATOCRIT 32.1 % (36.0-48.0); LYMPH # 0.9 (1.2-3.4); LYMPH % 14.1 % (22.0-35.0); MEAN CELL VOLUME 91.7 fL (80.0-105.0); MEAN CORPUSCULAR HGB CONC 30.5 g/dl (31.0-37.0); MEAN PLATELET VOLUME 8.7 fl (7.0-11.0); MONO # 0.6 (0.1-0.6); MONO % 9.1 % (1.0-6.0); PLATELET COUNT 265 10^3/uL (120.0-450.0); RED CELL DISTRIBUTION WIDTH 17.1 % (11.5-14.5); WHITE BLOOD COUNT 6.5 10^3/ul (4.5-11.0)
[2017-02-13 07:32] LABS: CALCIUM 7.9 mg/dL (8.4-10.5); POTASSIUM 4.1 mmol/L (3.6-5.0)
[2017-02-13] MEDS: Insulin Reg-LOW-Coverage SC SCH ×4 (07:40→22:25)
--- NOTE | 2017-02-13 09:11 | CP.PCM.PN ---
<Albania Carranza - Last Filed: 02/13/17 16:48> Subjective - Date & Time of Evaluation Date of Evaluation: 02/13/17 Time of Evaluation: 07:55 - Subjective Subjective: Medicine progress note for Dr Rayo and Dr Deleon Patient with no complaints. Patient denies pain in the eyes. Patient can see with left eyes, not with right eyes. Patient denies fever, chills, n/v/d. Patient denies cp, or sob. Objective - Vital Signs/Intake and Output Vital Signs (last 24 hours): Temp Pulse Resp BP Pulse Ox 96.7 F L 60 18 164/65 H 95 02/13/17 06:00 02/13/17 06:00 02/13/17 06:00 02/13/17 06:00 02/13/17 06:00 Intake and Output: 02/13/17 02/13/17 06:59 18:59 Intake Total 980 Output Total 400 Balance 580 - Medications Medications: Current Medications Amiodarone HCl (Cordarone) 200 mg PO DAILY [facility] Last Admin: 02/12/17 09:24 Dose: 200 mg Artificial Tears (Artificial Tears) 1 ml OU TID [facility] Last Admin: 02/12/17 17:27 Dose: 1 drop Atorvastatin Calcium (Lipitor) 20 mg PO DIN [facility] Last Admin: 02/12/17 17:22 Dose: 20 mg Carvedilol (Coreg) 25 mg PO BID [facility] Last Admin: 02/12/17 17:27 Dose: 25 mg Digoxin (Lanoxin) 0.125 mg PO HS [facility] Last Admin: 02/12/17 21:46 Dose: 0.125 mg Docusate Sodium (Colace) 100 mg PO BID [facility] Last Admin: 02/12/17 17:42 Dose: 100 mg Enoxaparin Sodium (Lovenox) 40 mg SC DAILY [facility] PRN Reason: Protocol Last Admin: 02/12/17 16:39 Dose: 40 mg Ferrous Sulfate (Feosol) 324 mg PO TID [facility] Last Admin: 02/12/17 17:21 Dose: 324 mg Gabapentin (Neurontin) 300 mg PO HS [facility] PRN Reason: Protocol Last Admin: 02/12/17 21:45 Dose: 300 mg Hydralazine HCl (Apresoline) 50 mg PO BID [facility] Last Admin: 02/12/17 17:23 Dose: 50 mg Sodium Chloride (Sodium Chloride 0.45%) 1,000 mls @ 40 mls/hr IV .Q24H [facility] Last Admin: 02/13/17 02:11 Dose: 40 mls/hr Ceftaroline Fosamil 400 mg/ (Sodium Chloride) 100 mls @ 100 mls/hr IVPB Q12 [facility] PRN Reason: Protocol Stop: 02/18/17 22:01 Last Admin: 02/12/17 22:06 Dose: 100 mls/hr Insulin Human Regular (Humulin R Low) 0 units SC ACHS [facility] PRN Reason: Protocol Last Admin: 02/12/17 22:00 Dose: Not Given Isosorbide Mononitrate (Imdur) 60 mg PO DAILY [facility] Last Admin: 02/12/17 09:27 Dose: 60 mg Levothyroxine Sodium (Synthroid) 50 mcg PO ACB [facility] Last Admin: 02/12/17 09:22 Dose: 50 mcg Loratadine (Claritin) 10 mg PO DAILY [facility] PRN Reason: Nasal congestion Neomycin/Polymyxin/Dexamethasone (Maxitrol Opht Susp) 0 ml OU TID [facility] Last Admin: 02/12/17 17:22 Dose: 1 drop Pantoprazole Sodium (Protonix Ec Tab) 40 mg PO ACB [facility] Last Admin: 02/12/17 09:23 Dose: 40 mg Simethicone (Mylicon Chew Tab) 80 mg PO [facility] PRN PRN Reason: GI distress Tobramycin/Dexamethasone (Tobradex Opht Susp) 0 ml OU QID [facility] Last Admin: 02/12/17 21:46 Dose: 2 drop - Labs Labs: 02/13/17 07:00 02/13/17 07:00 PT 11.7 Seconds (9.9-11.8) 02/11/17 15:55 INR 1.08 (0.93-1.08) 02/11/17 15:55 APTT 25.6 Seconds (23.7-30.8) 02/11/17 15:55 - Constitutional Appears: No Acute Distress, Chronically Ill - Head Exam Head Exam: ATRAUMATIC, NORMAL INSPECTION, NORMOCEPHALIC - Eye Exam Eye Exam: Conjunctival injection (left), Periorbital swelling (left) Pupil Exam: Irregular Additional comments: Right eye blindness. + dry crusted discharge. - ENT Exam ENT Exam: Mucous Membranes Moist - Neck Exam Neck Exam: Normal Inspection - Respiratory Exam Respiratory Exam: Clear to Ausculation Bilateral, NORMAL BREATHING PATTERN. absent: Prolonged Expiratory Phase, Rales, Rhonchi, Wheezes, Respiratory Distress, Stridor - Cardiovascular Exam Cardiovascular Exam: REGULAR RHYTHM, RRR, +S1, +S2 - GI/Abdominal Exam GI & Abdominal Exam: Soft, Normal Bowel Sounds. absent: Distended, Firm, Guarding, Rigid, Tenderness - Extremities Exam Extremities Exam: Normal Inspection - Back Exam Back Exam: NORMAL INSPECTION - Neurological Exam Neurological Exam: Alert, Awake, Oriented x3 - Psychiatric Exam Psychiatric exam: Normal Affect, Normal Mood - Skin Skin Exam: Dry, Normal Color, Warm Assessment and Plan - Assessment and Plan (Free Text) Assessment: Patient is an 81 y/o with CAD, HTN, HLD, Hypothyroid, DM, Breast CA s/p lumpectomy admitted with left preorbital cellulites. Plan: 1) Left preorbital preseptal cellulites - will continue maxitrol 1 drop tid and Tobradex 1 drop qid as per optho - eye cleaning as ordered - Gram positive cocci on left eye wound culture - ID following as well - Started on teflaro - Hemodynamically stable, will d/c ivf. 2) CAD - continue coreg, Lipitor, digoxin, amiodorone, and imdur - hydralazine increased to 50 mg tid for htn. 3) DM - ISS - Accuchecks achs - carb controlled diet 4) Hypothyroid- will continue synthroid 5) Neuropathy- continue gabapentin 6) Constipation- continue colace and semethicone. 7) Chronic anemia - hgb 9-10, will monitor for now. 8) DVT and gi prophylaxis- protonix, and Lovenox sc. 9) Dispo: care home, and follow up with nephro as outpatient. Patient seen, examined, case discussed with Dr Deleon. <Jaquan Deleon - Last Filed: 03/07/17 14:57> Objective - Vital Signs/Intake and Output Vital Signs (last 24 hours): Temp Pulse Resp BP Pulse Ox 98 F 60 20 131/61 93 L 02/15/17 08:47 02/15/17 17:20 02/15/17 08:47 02/15/17 17:20 02/15/17 08:47 - Labs Labs: 02/15/17 08:00 02/15/17 08:00 PT 11.7 Seconds (9.9-11.8) 02/11/17 15:55 INR 1.08 (0.93-1.08) 02/11/17 15:55 APTT 25.6 Seconds (23.7-30.8) 02/11/17 15:55 Attending/Attestation - Attestation I have personally seen and examined this patient.: Yes I have fully participated in the care of the patient.: Yes I have reviewed all pertinent clinical information, including history, physical exam and plan: Yes Notes (Text): 03/07/17 14:57 Medical record note made by the resident after discussion with my direction and input after the patient was personally seen and examined by me. I have reviewed the chart and agree that the record accurately reflects by personal performance of the history, physical exam, data review, and medical decision-making, in the course for the patient. I have also personally directed the plan of care.
[2017-02-13] MEDS: Enoxaparin 40 mg Syringe SC SCH (09:33)
[2017-02-13] MEDS: Pantoprazole 40 mg EC Tab PO SCH (09:34)
[2017-02-13] MEDS: Levothyroxine 50 MCG TAB PO SCH (09:35)
[2017-02-13] MEDS: Tobramycin/Dexamethasone (Tobradex) Opth Sol (2.5 ml) OU SCH ×4 (09:41→21:59)
[2017-02-13] MEDS: Neomy-Polymyx-Dexameth Ophth Susp (5 ml) OU SCH ×3 (09:41→17:00)
[2017-02-13] MEDS: Aritificial Tears (15ml) OU SCH ×3 (09:42→17:01)
[2017-02-13] MEDS ORDERED: guaiFENesin 100 mg/5 ml Syrup UD PO PRN (16:49)
[2017-02-13 18:35] VITALS: RESP 20
[2017-02-13] MEDS ORDERED: Oxymetazoline 0.05% Nasal Spray (30 ml) NS SCH (19:00)
[2017-02-13] MEDS ORDERED: guaiFENesin-DM 600-30 mg ER Tab PO ONE (19:10)
--- NOTE | 2017-02-13 20:42 | CP.PCM.PN ---
Subjective - Date & Time of Evaluation Date of Evaluation: 02/13/17 Time of Evaluation: 13:10 - Subjective Subjective: Patient's left eye is feeling better, no fevers overnight. Objective - Vital Signs/Intake and Output Vital Signs (last 24 hours): Temp Pulse Resp BP Pulse Ox 98.6 F 68 20 172/69 H 91 L 02/13/17 16:00 02/13/17 17:57 02/13/17 16:00 02/13/17 17:57 02/13/17 16:00 Intake and Output: 02/13/17 02/14/17 18:59 06:59 Intake Total 400 Balance 400 - Medications Medications: Current Medications Acetaminophen (Tylenol 325mg Tab) 650 mg PO Q6H PRN PRN Reason: Pain, moderate (4-7) Last Admin: 02/13/17 11:58 Dose: 650 mg Amiodarone HCl (Cordarone) 200 mg PO DAILY [facility] Last Admin: 02/13/17 09:34 Dose: 200 mg Artificial Tears (Artificial Tears) 1 ml OU TID [facility] Last Admin: 02/13/17 17:01 Dose: 1 drop Atorvastatin Calcium (Lipitor) 20 mg PO DIN [facility] Last Admin: 02/13/17 17:09 Dose: 20 mg Carvedilol (Coreg) 25 mg PO BID [facility] Last Admin: 02/13/17 17:57 Dose: 25 mg Digoxin (Lanoxin) 0.125 mg PO HS [facility] Last Admin: 02/12/17 21:46 Dose: 0.125 mg Docusate Sodium (Colace) 100 mg PO BID [facility] Last Admin: 02/13/17 17:09 Dose: 100 mg Enoxaparin Sodium (Lovenox) 40 mg SC DAILY [facility] PRN Reason: Protocol Last Admin: 02/13/17 09:33 Dose: 40 mg Ferrous Sulfate (Feosol) 324 mg PO TID [facility] Last Admin: 02/13/17 17:09 Dose: 324 mg Gabapentin (Neurontin) 300 mg PO [facility] PRN Reason: Protocol Last Admin: 02/12/17 21:45 Dose: 300 mg Guaifenesin (Robitussin) 100 mg PO Q4H [facility] PRN Reason: Cough Last Admin: 02/13/17 17:11 Dose: 100 mg Hydralazine HCl (Apresoline) 50 mg PO TID [facility] Last Admin: 02/13/17 17:11 Dose: 50 mg Ceftaroline Fosamil 400 mg/ (Sodium Chloride) 100 mls @ 100 mls/hr IVPB Q12 [facility] PRN Reason: Protocol Stop: 02/18/17 22:01 Last Admin: 02/13/17 09:33 Dose: 100 mls/hr Insulin Human Regular (Humulin R Low) 0 units SC ACHS [facility] PRN Reason: Protocol Last Admin: 02/13/17 17:58 Dose: 1 units Isosorbide Mononitrate (Imdur) 60 mg PO DAILY [facility] Last Admin: 02/13/17 09:34 Dose: 60 mg Levothyroxine Sodium (Synthroid) 50 mcg PO ACB [facility] Last Admin: 02/13/17 09:35 Dose: 50 mcg Loratadine (Claritin) 10 mg PO DAILY [facility] PRN Reason: Nasal congestion Last Admin: 02/13/17 11:22 Dose: 10 mg Neomycin/Polymyxin/Dexamethasone (Maxitrol Opht Susp) 0 ml OU TID [facility] Last Admin: 02/13/17 17:00 Dose: 1 drop Pantoprazole Sodium (Protonix Ec Tab) 40 mg PO ACB [facility] Last Admin: 02/13/17 09:34 Dose: 40 mg Simethicone (Mylicon Chew Tab) 80 mg PO [facility] PRN PRN Reason: GI distress Sodium Chloride ([place] Nasal [place]) 0 ml NS Q2H PRN PRN Reason: Nasal congestion Last Admin: 02/13/17 16:48 Dose: 1 drop Tobramycin/Dexamethasone (Tobradex Opht Susp) 0 ml OU QID [facility] Last Admin: 02/13/17 17:00 Dose: 1 drop - Labs Labs: 02/13/17 07:00 02/13/17 07:00 PT 11.7 Seconds (9.9-11.8) 02/11/17 15:55 INR 1.08 (0.93-1.08) 02/11/17 15:55 APTT 25.6 Seconds (23.7-30.8) 02/11/17 15:55 - Constitutional Appears: Non-toxic, No Acute Distress - Head Exam Head Exam: NORMAL INSPECTION - Eye Exam Eye Exam: Periorbital tenderness (on the left with swelling and erythema which have decreased) - ENT Exam ENT Exam: Mucous Membranes Moist - Neck Exam Neck Exam: absent: Lymphadenopathy, Meningismus - Respiratory Exam Respiratory Exam: Decreased Breath Sounds - Cardiovascular Exam Cardiovascular Exam: +S1, +S2 - GI/Abdominal Exam GI & Abdominal Exam: Soft. absent: Tenderness Assessment and Plan - Assessment and Plan (Free Text) Plan: Assessment left periorbital preseptal cellulitis with MRSA , slowly improving HTN dyslipidemia CAD DM history of breast cancer S/P lumpectomy hypothyroidism Plan continue Ceftaroline day [address] orbit which showed the preseptal soft tissue swelling on the left Will continue to monitor clinical response
[2017-02-13] MEDS: Digoxin 125 mcg (0.125 mg) Tab PO SCH (22:07)
[2017-02-14 08:24] LABS: ADD MANUAL DIFF? NO
[2017-02-14 08:27] LABS: BASO # 0.01 K/mm3 (0.0-2.0); BASO % 0.1 % (0.0-3.0); EOS # 0.1 (0.0-0.7); EOS % 1.4 % (1.5-5.0); GRAN % 79.8 % (50.0-68.0); LYMPH # 0.7 (1.2-3.4); LYMPH % 10.6 % (22.0-35.0); MEAN CELL VOLUME 91.9 fL (80.0-105.0); MEAN CORPUSCULAR HEMOGLOBIN 28.3 pg (25.0-35.0); MEAN CORPUSCULAR HGB CONC 30.9 g/dl (31.0-37.0); MONO # 0.6 (0.1-0.6); MONO % 8.1 % (1.0-6.0); PLATELET COUNT 239 10^3/uL (120.0-450.0); RED CELL DISTRIBUTION WIDTH 16.7 % (11.5-14.5); WHITE BLOOD COUNT 6.9 10^3/ul (4.5-11.0)
[2017-02-14] MEDS: Insulin Reg-LOW-Coverage SC SCH ×4 (08:33→22:05)
[2017-02-14] MEDS: Pantoprazole 40 mg EC Tab PO SCH (08:36)
[2017-02-14 08:49] LABS: CALCIUM 8.6 mg/dL (8.4-10.5); POTASSIUM 4.2 mmol/L (3.6-5.0)
[2017-02-14] MEDS: Enoxaparin 40 mg Syringe SC SCH (10:30)
[2017-02-14] MEDS: Tobramycin/Dexamethasone (Tobradex) Opth Sol (2.5 ml) OU SCH ×3 (10:42→23:04)
[2017-02-14] MEDS: Aritificial Tears (15ml) OU SCH ×3 (10:43→17:56)
[2017-02-14] MEDS: Neomy-Polymyx-Dexameth Ophth Susp (5 ml) OU SCH ×3 (10:44→17:56)
[2017-02-14] MEDS: Levothyroxine 50 MCG TAB PO SCH (10:51)
--- NOTE | 2017-02-14 15:06 | CP.PCM.PN ---
<Albania Carranza - Last Filed: 02/14/17 20:24> Subjective - Date & Time of Evaluation Date of Evaluation: 02/14/17 Time of Evaluation: 07:20 - Subjective Subjective: Medicine progress note for Dr Rayo and Dr Deleon. Patient reports improvement in her left eye vision, however still erythematous. Patient denies pain in the eyes. Patient denies cp, sob, headache or dizziness. Patient has chronic cough, and asking for cough syrup. Objective - Vital Signs/Intake and Output Vital Signs (last 24 hours): Temp Pulse Resp BP Pulse Ox 98.0 F 60 20 121/54 L 94 L 02/14/17 06:00 02/14/17 13:37 02/14/17 06:00 02/14/17 13:37 02/13/17 23:00 Intake and Output: 02/14/17 02/14/17 06:59 18:59 Intake Total 580 Output Total 600 Balance -20 - Medications Medications: Current Medications Acetaminophen (Tylenol 325mg Tab) 650 mg PO Q6H PRN PRN Reason: Pain, moderate (4-7) Last Admin: 02/13/17 11:58 Dose: 650 mg Amiodarone HCl (Cordarone) 200 mg PO DAILY [facility] Last Admin: 02/14/17 10:31 Dose: 200 mg Amlodipine Besylate (Norvasc) 5 mg PO DAILY [facility] Last Admin: 02/14/17 10:37 Dose: 5 mg Artificial Tears (Artificial Tears) 1 ml OU TID [facility] Last Admin: 02/14/17 13:44 Dose: 1 drop Atorvastatin Calcium (Lipitor) 20 mg PO DIN [facility] Last Admin: 02/13/17 17:09 Dose: 20 mg Carvedilol (Coreg) 25 mg PO BID [facility] Last Admin: 02/14/17 10:37 Dose: 25 mg Digoxin (Lanoxin) 0.125 mg PO HS [facility] Last Admin: 02/13/17 22:07 Dose: 0.125 mg Diphenhydramine HCl (Benadryl) 25 mg PO Q6 PRN PRN Reason: Nasal congestion Last Admin: 02/13/17 22:59 Dose: 25 mg Docusate Sodium (Colace) 100 mg PO BID [facility] Last Admin: 02/14/17 10:30 Dose: 100 mg Enoxaparin Sodium (Lovenox) 40 mg SC DAILY [facility] PRN Reason: Protocol Last Admin: 02/14/17 10:30 Dose: 40 mg Ferrous Sulfate (Feosol) 324 mg PO TID [facility] Last Admin: 02/14/17 13:47 Dose: 324 mg Gabapentin (Neurontin) 300 mg PO HS [facility] PRN Reason: Protocol Last Admin: 02/13/17 21:56 Dose: 300 mg Guaifenesin (Robitussin) 100 mg PO Q4H PRN PRN Reason: Cough Last Admin: 02/13/17 17:11 Dose: 100 mg Hydralazine HCl (Apresoline) 50 mg PO TID [facility] Last Admin: 02/14/17 13:37 Dose: 50 mg Ceftaroline Fosamil 400 mg/ (Sodium Chloride) 100 mls @ 100 mls/hr IVPB Q12 [facility] PRN Reason: Protocol Stop: 02/18/17 22:01 Last Admin: 02/14/17 10:29 Dose: 100 mls/hr Insulin Human Regular (Humulin R Low) 0 units SC ACHS [facility] PRN Reason: Protocol Last Admin: 02/14/17 12:54 Dose: Not Given Isosorbide Mononitrate (Imdur) 60 mg PO DAILY [facility] Last Admin: 02/14/17 10:31 Dose: 60 mg Levothyroxine Sodium (Synthroid) 50 mcg PO ACB [facility] Last Admin: 02/14/17 10:51 Dose: 50 mcg Loratadine (Claritin) 10 mg PO DAILY PRN PRN Reason: Nasal congestion Last Admin: 02/13/17 11:22 Dose: 10 mg Neomycin/Polymyxin/Dexamethasone (Maxitrol Opht Susp) 0 ml OU TID [facility] Last Admin: 02/14/17 13:45 Dose: 1 drop Pantoprazole Sodium (Protonix Ec Tab) 40 mg PO ACB [facility] Last Admin: 02/14/17 08:36 Dose: 40 mg Simethicone (Mylicon Chew Tab) 80 mg PO [facility] PRN PRN Reason: GI distress Sodium Chloride ([place] Nasal [place]) 0 ml NS Q2H PRN PRN Reason: Nasal congestion Last Admin: 02/13/17 16:48 Dose: 1 drop Tobramycin/Dexamethasone (Tobradex Opht Susp) 0 ml OU QID [facility] Last Admin: 02/14/17 13:45 Dose: 1 drop - Labs Labs: 05/24/17 08:00 02/14/17 08:00 PT 11.7 Seconds (9.9-11.8) 02/11/17 15:55 INR 1.08 (0.93-1.08) 02/11/17 15:55 APTT 25.6 Seconds (23.7-30.8) 02/11/17 15:55 - Constitutional Appears: No Acute Distress, Older Than Stated Age, Chronically Ill - Head Exam Head Exam: ATRAUMATIC, NORMAL INSPECTION, NORMOCEPHALIC - Eye Exam Eye Exam: Conjunctival injection (left eye), EOMI (of left eye), Periorbital swelling (mild, left eye). 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 Patient can open left eye. - ENT Exam ENT Exam: Mucous Membranes Moist - Neck Exam Neck Exam: Normal Inspection - Respiratory Exam Respiratory Exam: Clear to Ausculation Bilateral, NORMAL BREATHING PATTERN. absent: Rales, Rhonchi, Wheezes, Respiratory Distress, Stridor - Cardiovascular Exam Cardiovascular Exam: REGULAR RHYTHM, RRR, +S1, +S2 - GI/Abdominal Exam GI & Abdominal Exam: Soft, Normal Bowel Sounds. absent: Distended, Firm, Guarding, Rigid, Tenderness - Extremities Exam Extremities Exam: Pedal Edema (+1) - Neurological Exam Neurological Exam: Alert, Awake, Oriented x3 - Psychiatric Exam Psychiatric exam: Normal Affect, Normal Mood - Skin Skin Exam: Dry, Normal Color, Warm Assessment and Plan - Assessment and Plan (Free Text) Assessment: Patient is an 81 y/o with CAD, HTN, HLD, Hypothyroid, DM, Breast CA s/p lumpectomy admitted with left preorbital cellulites. Plan: 1) Left pre-orbital pre-septal cellulites - improved in vision, still erythematous. - Continue maxitrol 1 drop tid and Tobradex 1 drop qid as per optho - eye cleaning as ordered - abscess culture with MRSA. - ID following as well - On teflaro 2) CAD - continue coreg, Lipitor, digoxin, amiodorone, and imdur 3) Uncontrolled htn - continue hydralazine 50 mg tid - will add norvasc 4) DM - ISS - Accuchecks achs - carb controlled diet 5) Hypothyroid- will continue synthroid 6) Neuropathy- continue gabapentin 7) Constipation- continue colace and simethicone. 8) Chronic anemia - hgb 9-10, will monitor for now. 9) DVT and gi prophylaxis- protonix, and Lovenox sc. 10) Dispo: jail, and follow up with ophthalmology as outpatient. Patient seen, examined, case discussed with Dr Deleon. <Jaquan Deleon - Last Filed: 03/08/17 18:41> Objective - Vital Signs/Intake and Output Vital Signs (last 24 hours): Temp Pulse Resp BP Pulse Ox 98 F 60 20 131/61 93 L 02/15/17 08:47 02/15/17 17:20 02/15/17 08:47 02/15/17 17:20 02/15/17 08:47 - Labs Labs: 02/15/17 08:00 02/15/17 08:00 PT 11.7 Seconds (9.9-11.8) 02/11/17 15:55 INR 1.08 (0.93-1.08) 02/11/17 15:55 APTT 25.6 Seconds (23.7-30.8) 02/11/17 15:55 Attending/Attestation - Attestation I have personally seen and examined this patient.: Yes I have fully participated in the care of the patient.: Yes I have reviewed all pertinent clinical information, including history, physical exam and plan: Yes Notes (Text): 03/07/17 15:10 Medical record note made by the resident after discussion with my direction and input after the patient was personally seen and examined by me. I have reviewed the chart and agree that the record accurately reflects by personal performance of the history, physical exam, data review, and medical decision-making, in the course for the patient. I have also personally directed the plan of care.
[2017-02-14] MEDS: Digoxin 125 mcg (0.125 mg) Tab PO SCH (22:05)
--- NOTE | 2017-02-14 22:11 | CP.PCM.PN ---
Subjective - Date & Time of Evaluation Date of Evaluation: 02/14/17 Time of Evaluation: 12:45 - Subjective Subjective: Comfortable, afebrile, less pain in the left eye. Objective - Vital Signs/Intake and Output Vital Signs (last 24 hours): Temp Pulse Resp BP Pulse Ox 97.8 F 60 20 149/64 95 02/14/17 16:00 02/14/17 17:55 02/14/17 16:00 02/14/17 17:55 02/14/17 16:00 - Medications Medications: Current Medications Acetaminophen (Tylenol 325mg Tab) 650 mg PO Q6H PRN PRN Reason: Pain, moderate (4-7) Last Admin: 02/13/17 11:58 Dose: 650 mg Amiodarone HCl (Cordarone) 200 mg PO DAILY [facility] Last Admin: 02/14/17 10:31 Dose: 200 mg Amlodipine Besylate (Norvasc) 10 mg PO DAILY [facility] Artificial Tears (Artificial Tears) 1 ml OU TID [facility] Last Admin: 02/14/17 17:56 Dose: 1 drop Atorvastatin Calcium (Lipitor) 20 mg PO DIN [facility] Last Admin: 02/14/17 17:58 Dose: 20 mg Carvedilol (Coreg) 25 mg PO BID [facility] Last Admin: 02/14/17 17:55 Dose: 25 mg Digoxin (Lanoxin) 0.125 mg PO HS [facility] Last Admin: 02/13/17 22:07 Dose: 0.125 mg Diphenhydramine HCl (Benadryl) 25 mg PO Q6 PRN PRN Reason: Nasal congestion Last Admin: 02/13/17 22:59 Dose: 25 mg Docusate Sodium (Colace) 100 mg PO BID [facility] Last Admin: 02/14/17 17:54 Dose: 100 mg Enoxaparin Sodium (Lovenox) 40 mg SC DAILY [facility] PRN Reason: Protocol Last Admin: 02/14/17 10:30 Dose: 40 mg Ferrous Sulfate (Feosol) 324 mg PO TID [facility] Last Admin: 02/14/17 17:55 Dose: 324 mg Gabapentin (Neurontin) 300 mg PO HS [facility] PRN Reason: Protocol Last Admin: 02/13/17 21:56 Dose: 300 mg Guaifenesin (Robitussin) 100 mg PO Q4H PRN PRN Reason: Cough Last Admin: 02/13/17 17:11 Dose: 100 mg Hydralazine HCl (Apresoline) 50 mg PO TID [facility] Last Admin: 02/14/17 17:55 Dose: 50 mg Ceftaroline Fosamil 400 mg/ (Sodium Chloride) 100 mls @ 100 mls/hr IVPB Q12 [facility] PRN Reason: Protocol Stop: 02/18/17 22:01 Last Admin: 02/14/17 10:29 Dose: 100 mls/hr Insulin Human Regular (Humulin R Low) 0 units SC ACHS [facility] PRN Reason: Protocol Last Admin: 02/14/17 17:55 Dose: 1 units Isosorbide Mononitrate (Imdur) 60 mg PO DAILY [facility] Last Admin: 02/14/17 10:31 Dose: 60 mg Levothyroxine Sodium (Synthroid) 50 mcg PO ACB [facility] Last Admin: 02/14/17 10:51 Dose: 50 mcg Loratadine (Claritin) 10 mg PO DAILY PRN PRN Reason: Nasal congestion Last Admin: 02/13/17 11:22 Dose: 10 mg Neomycin/Polymyxin/Dexamethasone (Maxitrol Opht Susp) 0 ml OU TID [facility] Last Admin: 02/14/17 17:56 Dose: 1 drop Pantoprazole Sodium (Protonix Ec Tab) 40 mg PO ACB [facility] Last Admin: 02/14/17 08:36 Dose: 40 mg Simethicone (Mylicon Chew Tab) 80 mg PO PCHS PRN PRN Reason: GI distress Sodium Chloride ([place] Nasal [place]) 0 ml NS Q2H PRN PRN Reason: Nasal congestion Last Admin: 02/13/17 16:48 Dose: 1 drop Tobramycin/Dexamethasone (Tobradex Opht Susp) 0 ml OU QID [facility] Last Admin: 02/14/17 13:45 Dose: 1 drop - Labs Labs: 02/14/17 08:00 02/14/17 08:00 PT 11.7 Seconds (9.9-11.8) 02/11/17 15:55 INR 1.08 (0.93-1.08) 02/11/17 15:55 APTT 25.6 Seconds (23.7-30.8) 02/11/17 15:55 - Constitutional Appears: Non-toxic, No Acute Distress - Head Exam Head Exam: NORMAL INSPECTION - Eye Exam Eye Exam: Periorbital swelling (decreased on the left eye) - Neck Exam Neck Exam: absent: Meningismus - Respiratory Exam Respiratory Exam: Decreased Breath Sounds - Cardiovascular Exam Cardiovascular Exam: +S1, +S2 - GI/Abdominal Exam GI & Abdominal Exam: Soft. absent: Tenderness Assessment and Plan - Assessment and Plan (Free Text) Plan: Assessment left periorbital preseptal cellulitis with MRSA , slowly improving HTN dyslipidemia CAD DM history of breast cancer S/P lumpectomy hypothyroidism Plan continue Ceftaroline day [address] orbit which showed the preseptal soft tissue swelling on the left Will continue to monitor clinical response Discussed with Dr. Deleon
[2017-02-14 23:16] VITALS: PULSE 88
[2017-02-15] MEDS ORDERED: Iodixanol 320 MG/ML 100 ML BOTTLE IV ONE (00:13)
[2017-02-15 08:28] LABS: ADD MANUAL DIFF? NO
[2017-02-15 08:33] LABS: BASO # 0.01 K/mm3 (0.0-2.0); BASO % 0.2 % (0.0-3.0); EOS # 0.1 (0.0-0.7); EOS % 1.8 % (1.5-5.0); GRAN # 4.36 (1.4-6.5); GRAN % 76.2 % (50.0-68.0); HEMATOCRIT 33.7 % (36.0-48.0); LYMPH # 0.5 (1.2-3.4); LYMPH % 9.5 % (22.0-35.0); MEAN CELL VOLUME 92.1 fL (80.0-105.0); MEAN CORPUSCULAR HEMOGLOBIN 27.9 pg (25.0-35.0); MEAN CORPUSCULAR HGB CONC 30.3 g/dl (31.0-37.0); MONO # 0.7 (0.1-0.6); MONO % 12.3 % (1.0-6.0); PLATELET COUNT 253 10^3/uL (120.0-450.0); RED CELL DISTRIBUTION WIDTH 16.5 % (11.5-14.5); WHITE BLOOD COUNT 5.7 10^3/ul (4.5-11.0)
[2017-02-15 08:46] LABS: CALCIUM 8.5 mg/dL (8.4-10.5); POTASSIUM 4.3 mmol/L (3.6-5.0)
[2017-02-15 08:47] VITALS: TEMP 98; O2SAT 93
[2017-02-15] MEDS: Insulin Reg-LOW-Coverage SC SCH ×3 (09:33→17:04)
[2017-02-15] MEDS: Pantoprazole 40 mg EC Tab PO SCH (09:41)
[2017-02-15] MEDS: Aritificial Tears (15ml) OU SCH ×3 (09:42→17:20)
[2017-02-15] MEDS: Levothyroxine 50 MCG TAB PO SCH (09:42)
[2017-02-15] MEDS: Neomy-Polymyx-Dexameth Ophth Susp (5 ml) OU SCH ×3 (09:44→17:10)
[2017-02-15] MEDS: Enoxaparin 40 mg Syringe SC SCH (09:44)
--- NOTE | 2017-02-15 14:12 | CP.PCM.DIS ---
<TabathaisraelAlbania watkins - Last Filed: 02/20/17 15:43> Provider - Provider Date of Admission: 02/12/17 14:26 Attending physician: Robi Rayo MD Consults: ID Medical Review Specialist Time Spent in preparation of Discharge (in minutes): 50 Diagnosis - Discharge Diagnosis (1) Periorbital cellulitis of left eye Status: Acute (2) Hemorrhage anterior chamber eye Status: Acute (3) Rhinitis Status: Acute (4) Blind right eye Status: Chronic (5) Hypothyroid Status: Chronic (6) CAD (coronary artery disease) Status: Chronic (7) Hypertension Status: Chronic (8) Dyslipidemia Status: Chronic (9) Diabetes Status: Chronic Hospital Course - Lab Results Lab Results: Most Recent Lab Values WBC 5.7 10^3/ul (4.5-11.0) 02/15/17 08:00 RBC 3.66 10^6/uL (3.5-6.1) 02/15/17 08:00 Hgb 10.2 gm/dL (12.0-16.0) L 02/15/17 08:00 Hct 33.7 % (36.0-48.0) L 02/15/17 08:00 MCV 92.1 fL (80.0-105.0) 02/15/17 08:00 MCH 27.9 pg (25.0-35.0) 02/15/17 08:00 MCHC 30.3 g/dl (31.0-37.0) L 02/15/17 08:00 RDW 16.5 % (11.5-14.5) H 02/15/17 08:00 Plt Count 253 10^3/uL (120.0-450.0) 02/15/17 08:00 MPV 9.0 fl (7.0-11.0) 02/15/17 08:00 Gran % 76.2 % (50.0-68.0) H 02/15/17 08:00 Lymph % (Auto) 9.5 % (22.0-35.0) L 02/15/17 08:00 Andrews % (Auto) 12.3 % (1.0-6.0) H 02/15/17 08:00 Eos % (Auto) 1.8 % (1.5-5.0) 02/15/17 08:00 Baso % (Auto) 0.2 % (0.0-3.0) 02/15/17 08:00 Gran # 4.36 (1.4-6.5) 02/15/17 08:00 Lymph # 0.5 (1.2-3.4) L 02/15/17 08:00 Andrews # 0.7 (0.1-0.6) H 02/15/17 08:00 Eos # 0.1 (0.0-0.7) 02/15/17 08:00 Baso # 0.01 K/mm3 (0.0-2.0) 02/15/17 08:00 PT 11.7 Seconds (9.9-11.8) 02/11/17 15:55 INR 1.08 (0.93-1.08) 02/11/17 15:55 APTT 25.6 Seconds (23.7-30.8) 02/11/17 15:55 Sodium 141 mmol/L (132-148) 02/15/17 08:00 Potassium 4.3 mmol/L (3.6-5.0) 02/15/17 08:00 Chloride 106 mmol/L (98-107) 02/15/17 08:00 Carbon Dioxide 30 mmol/L (21-33) 02/15/17 08:00 Anion Gap 9 (10-20) L 02/15/17 08:00 BUN 20 mg/dL (7-21) 02/15/17 08:00 Creatinine 1.1 mg/dL (0.5-1.4) 02/15/17 08:00 Est GFR ( Amer) 58 02/15/17 08:00 Est GFR (Non-Af Amer) 48 02/15/17 08:00 POC Glucose (mg/dL) 131 mg/dL (65-110) H 02/15/17 12:05 Random Glucose 99 mg/dL (70-110) 02/15/17 08:00 Calcium 8.5 mg/dL (8.4-10.5) 02/15/17 08:00 Total Bilirubin 0.4 mg/dL (0.2-1.3) 02/11/17 16:50 AST 24 U/L (15-39) 02/11/17 16:50 ALT 37 U/L (7-56) 02/11/17 16:50 Alkaline Phosphatase 80 U/L (38-133) 02/11/17 16:50 Lactate Dehydrogenase 594 U/L (333-699) 02/11/17 16:50 Total Creatine Kinase 155 U/L (35-230) 02/11/17 16:50 Troponin I < 0.01 ng/mL 02/11/17 16:50 Total Protein 6.7 g/dL (5.8-8.3) 02/11/17 16:50 Albumin 3.3 g/dL (3.0-4.8) 02/11/17 16:50 Globulin 3.5 gm/dL 02/11/17 16:50 Albumin/Globulin Ratio 0.9 (1.1-1.8) L 02/11/17 16:50 Digoxin 1.0 ng/mL (0.8-2.0) 02/12/17 19:32 - Hospital Course Hospital Course: Patient is an 81 y/o with CAD, HTN, HLD, Hypothyroid, DM, Breast CA s/p lumpectomy whom was sent from care home with left eye pain and swelling, and was noted to have cellulites of the left eyes. Patient had orbital CT which revealed preorbital preseptal edema. Medical Review Specialist was consulted and recommended eye wash, and maxitrol 1 drop tid and Tobradex 1 drop qid. ID was also consulted. Patient had left eye abscess culture which grew MRSA. Blood cultures no growth. Patient was placed on teflora for 4 days, and was discharged with Augmentin for 5-7 days. Patient's left eye erythema and edema completely resolved, patient was able to see in the left eye as normal. Patient will follow up with operations support professionals in 1-2 weeks as out patient. - Date & Time of H&P Date of H&P: 02/11/17 Time of H&P: 17:26 Discharge Exam - Head Exam Head Exam: NORMAL INSPECTION - Eye Exam Eye Exam: EOMI. 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 - ENT Exam ENT Exam: Mucous Membranes Moist - Neck Exam Neck exam: Normal Inspection - Respiratory Exam Respiratory Exam: Clear to PA & Lateral, NORMAL BREATHING PATTERN, UNREMARKABLE. absent: Rales, Rhonchi, Wheezes, Respiratory Distress, Stridor - Cardiovascular Exam Cardiovascular Exam: REGULAR RHYTHM, RRR, +S1, +S2. absent: Systolic Murmur - GI/Abdominal Exam GI & Abdominal Exam: Normal Bowel Sounds, Unremarkable. absent: Distended, Firm , Guarding, Rigid, Soft, Tenderness - Back Exam Back exam: NORMAL INSPECTION - Neurological Exam Neurological exam: Alert, Oriented x3 - Psychiatric Exam Psychiatric exam: Normal Affect, Normal Mood - Skin Skin Exam: Dry, Normal Color Discharge Plan - Discharge Medications Prescriptions: amLODIPine [Norvasc] 10 mg PO DAILY #30 tab Amoxicillin/Clavulanate [Augmentin 500 MG-125 MG] 1 tab PO Q12H 7 Days Dexamethasone/Tobramycin [Tobradex Opht Susp] 0 ml OU QID 30 Days hydrALAZINE [Apresoline] 50 mg PO TID #30 tab Neomycin/Polymyxin/Dexamethaso [Maxitrol Opht Susp] 0 ml OU TID 30 Days - Follow Up Plan Condition: FAIR Disposition: TRANSF TO SNF Patient education suggested?: Yes Additional Instructions: Patient need to follow up with Dr Brandon to schedule appointment to check her eyes. Referrals: Saurav Brandon MD [Staff Provider] - Jaquan Deleon MD [Staff Provider] - <Jaquan Deleon - Last Filed: 03/09/17 18:56> Provider - Provider Date of Admission: 02/12/17 14:26 Attending physician: Robi Rayo MD Hospital Course - Lab Results Lab Results: Most Recent Lab Values WBC 5.7 10^3/ul (4.5-11.0) 02/15/17 08:00 RBC 3.66 10^6/uL (3.5-6.1) 02/15/17 08:00 Hgb 10.2 gm/dL (12.0-16.0) L 02/15/17 08:00 Hct 33.7 % (36.0-48.0) L 02/15/17 08:00 MCV 92.1 fL (80.0-105.0) 02/15/17 08:00 MCH 27.9 pg (25.0-35.0) 02/15/17 08:00 MCHC 30.3 g/dl (31.0-37.0) L 02/15/17 08:00 RDW 16.5 % (11.5-14.5) H 02/15/17 08:00 Plt Count 253 10^3/uL (120.0-450.0) 02/15/17 08:00 MPV 9.0 fl (7.0-11.0) 02/15/17 08:00 Gran % 76.2 % (50.0-68.0) H 02/15/17 08:00 Lymph % (Auto) 9.5 % (22.0-35.0) L 02/15/17 08:00 Andrews % (Auto) 12.3 % (1.0-6.0) H 02/15/17 08:00 Eos % (Auto) 1.8 % (1.5-5.0) 02/15/17 08:00 Baso % (Auto) 0.2 % (0.0-3.0) 02/15/17 08:00 Gran # 4.36 (1.4-6.5) 02/15/17 08:00 Lymph # 0.5 (1.2-3.4) L 02/15/17 08:00 Andrews # 0.7 (0.1-0.6) H 02/15/17 08:00 Eos # 0.1 (0.0-0.7) 02/15/17 08:00 Baso # 0.01 K/mm3 (0.0-2.0) 02/15/17 08:00 PT 11.7 Seconds (9.9-11.8) 02/11/17 15:55 INR 1.08 (0.93-1.08) 02/11/17 15:55 APTT 25.6 Seconds (23.7-30.8) 02/11/17 15:55 Sodium 141 mmol/L (132-148) 02/15/17 08:00 Potassium 4.3 mmol/L (3.6-5.0) 02/15/17 08:00 Chloride 106 mmol/L (98-107) 02/15/17 08:00 Carbon Dioxide 30 mmol/L (21-33) 02/15/17 08:00 Anion Gap 9 (10-20) L 02/15/17 08:00 BUN 20 mg/dL (7-21) 02/15/17 08:00 Creatinine 1.1 mg/dL (0.5-1.4) 02/15/17 08:00 Est GFR ( Amer) 58 02/15/17 08:00 Est GFR (Non-Af Amer) 48 02/15/17 08:00 POC Glucose (mg/dL) 162 mg/dL (65-110) H 02/15/17 16:30 Random Glucose 99 mg/dL (70-110) 02/15/17 08:00 Calcium 8.5 mg/dL (8.4-10.5) 02/15/17 08:00 Total Bilirubin 0.4 mg/dL (0.2-1.3) 02/11/17 16:50 AST 24 U/L (15-39) 02/11/17 16:50 ALT 37 U/L (7-56) 02/11/17 16:50 Alkaline Phosphatase 80 U/L (38-133) 02/11/17 16:50 Lactate Dehydrogenase 594 U/L (333-699) 02/11/17 16:50 Total Creatine Kinase 155 U/L (35-230) 02/11/17 16:50 Troponin I < 0.01 ng/mL 02/11/17 16:50 Total Protein 6.7 g/dL (5.8-8.3) 02/11/17 16:50 Albumin 3.3 g/dL (3.0-4.8) 02/11/17 16:50 Globulin 3.5 gm/dL 02/11/17 16:50 Albumin/Globulin Ratio 0.9 (1.1-1.8) L 02/11/17 16:50 Digoxin 1.0 ng/mL (0.8-2.0) 02/12/17 19:32 Attending/Attestation - Attestation I have personally seen and examined this patient.: Yes I have fully participated in the care of the patient.: Yes I have reviewed all pertinent clinical information, including history, physical exam and plan: Yes Notes (Text): 03/09/17 18:56 Medical record note made by the resident after discussion with my direction and input after the patient was personally seen and examined by me. I have reviewed the chart and agree that the record accurately reflects by personal performance of the history, physical exam, data review, and medical decision-making, in the course for the patient. I have also personally directed the plan of care.
[2017-02-15] MEDS: Tobramycin/Dexamethasone (Tobradex) Opth Sol (2.5 ml) OU SCH ×3 (17:04→17:21)
[2017-02-15 17:22] VITALS: BP 131/61; PULSE 60
--- NOTE | 2017-02-15 18:38 | CP.PCM.PN ---
Subjective - Date & Time of Evaluation Date of Evaluation: 02/15/17 Time of Evaluation: 12:10 - Subjective Subjective: Comfortable, afebrile, not in distress, less swelling and pain in the eye. Objective - Vital Signs/Intake and Output Vital Signs (last 24 hours): Temp Pulse Resp BP Pulse Ox 98 F 60 20 131/61 93 L 02/15/17 08:47 02/15/17 17:20 02/15/17 08:47 02/15/17 17:20 02/15/17 08:47 Intake and Output: 02/15/17 02/15/17 06:59 18:59 Intake Total 620 Output Total 500 Balance 120 - Labs Labs: 02/15/17 08:00 02/15/17 08:00 PT 11.7 Seconds (9.9-11.8) 02/11/17 15:55 INR 1.08 (0.93-1.08) 02/11/17 15:55 APTT 25.6 Seconds (23.7-30.8) 02/11/17 15:55 - Constitutional Appears: Non-toxic, No Acute Distress - Head Exam Head Exam: NORMAL INSPECTION - ENT Exam ENT Exam: Mucous Membranes Moist - Neck Exam Neck Exam: absent: Lymphadenopathy, Meningismus - Respiratory Exam Respiratory Exam: Decreased Breath Sounds - Cardiovascular Exam Cardiovascular Exam: +S1, +S2 - GI/Abdominal Exam GI & Abdominal Exam: Soft. absent: Tenderness Assessment and Plan - Assessment and Plan (Free Text) Plan: Assessment left periorbital preseptal cellulitis with MRSA , clinically improving HTN dyslipidemia CAD DM history of breast cancer S/P lumpectomy hypothyroidism Plan on Ceftaroline day 4; on discharge, she can be switched to PO Doxycycline for another 5-[address] orbit which showed the preseptal soft tissue swelling on the left Discussed with Dr. Deleon
== END 2017-02-15 17:55 | DRG 603 ==
LOC: ED 14:56 → ERH 17:08 → 3RSO 19:51 → OBSVTOIN 02-12 14:26 → 3RSO 02-13 13:28
PROVIDERS: ADMIT Internal Medicine; ATTEND Internal Medicine
DX: L03.213 Periorbital cellulitis (principal); G62.9 Polyneuropathy, unspecified; F03.90 Unspecified dementia, unspecified severity, without behavioral disturbance, psychotic disturbance, mood disturbance, and anxiety; I10 Essential (primary) hypertension; E11.9 Type 2 diabetes mellitus without complications; B95.62 Methicillin resistant Staphylococcus aureus infection as the cause of diseases classified elsewhere; D50.9 Iron deficiency anemia, unspecified; J44.9 Chronic obstructive pulmonary disease, unspecified; H10.9 Unspecified conjunctivitis; H01.009 Unspecified blepharitis unspecified eye, unspecified eyelid; H57.8 Other specified disorders of eye and adnexa; J31.0 Chronic rhinitis; Z85.3 Personal history of malignant neoplasm of breast; I25.10 Atherosclerotic heart disease of native coronary artery without angina pectoris; Z95.810 Presence of automatic (implantable) cardiac defibrillator; Z86.73 Personal history of transient ischemic attack (TIA), and cerebral infarction without residual deficits; J45.909 Unspecified asthma, uncomplicated; Z87.891 Personal history of nicotine dependence; E78.5 Hyperlipidemia, unspecified; E78.00 Pure hypercholesterolemia, unspecified; E03.9 Hypothyroidism, unspecified; Z83.3 Family history of diabetes mellitus; R40.2412 Glasgow coma scale score 13-15, at arrival to emergency department; Z82.49 Family history of ischemic heart disease and other diseases of the circulatory system; Z91.81 History of falling; H11.432 Conjunctival hyperemia, left eye; H54.41 Blindness, right eye, normal vision left eye; K59.00 Constipation, unspecified